=== PATIENT | male | born 1960 | race Caucasian/White ===

== ENCOUNTER 2021-01-26 12:49 | Inpatient (IN) | payer OTHER ==
[2021-01-26] MEDS ORDERED: ALBUTEROL SO4 2.5/IPRATROPIUM 0.5 INH SOL 3 ML VIAL.NEB. NEB ONE ×4 (13:18→19:01)
[2021-01-26] MEDS ORDERED: methylPREDNISolone NA SUCC 125 MG/2 ML VIAL IVPUSH ONE (13:18)
[2021-01-26] MEDS ORDERED: CEFTRIAXONE 1,000 MG in DEXTROSE 5%-WATER - 50 ML IVPB ONE (13:18)
[2021-01-26] MEDS ORDERED: CEFTRIAXONE 1 GM/50 ML BAG ONE (14:05)
[2021-01-26] MEDS ORDERED: methylPREDNISolone NA SUCC 125 MG/2 ML VIAL ONE ×2 (14:07→19:01)
[2021-01-26 14:45] LABS: VENOUS O2 SATURATION 77.4 % (70-80); VENOUS PH 7.317 (7.310-7.410)
[2021-01-26 14:46] LABS: BASO % 0.4 % (0-2.0); EOS % 0.2 % (0-4.5); HEMATOCRIT 42.3 % (35.4-49); HEMOGLOBIN 13.8 GM/dL (11.7-16.9); LYMPH % 4.5 % (8-40); MCH 30.5 pg (25.7-33.7); MCHC 32.6 g/dl (32.0-35.9); MEAN CELL VOLUME 93.7 fl (80-96); MEAN PLT VOLUME 9.8 fl (7.5-11.1); MONO % 2.1 % (3.8-10.2); NEUT % 92.8 % (42.8-82.8); PLATELET COUNT 155 10^3/uL (134-434); RBC 4.52 M/mm3 (4.00-5.60); RDW 14.4 % (11.9-15.9); WHITE BLOOD COUNT 7.8 K/mm3 (4.0-10.0)
[2021-01-26 14:48] LABS: VENOUS PCO2 74.6 mmHg (38-52)
[2021-01-26 15:01] LABS: CHLORIDE 100 mmol/L (98-107); SODIUM 142 mmol/L (136-145)
[2021-01-26 15:04] LABS: ALBUMIN 3.6 g/dl (3.4-5.0); ANION GAP 2 MMOL/L (8-16); BLOOD UREA NITROGEN 13.4 mg/dL (7-18); CO2 39 mmol/L (21-32); GLUCOSE,RANDOM 110 mg/dL (74-106)
[2021-01-26 15:07] LABS: CREATININE 0.5 mg/dL (0.55-1.3); SGOT/AST 8 U/L (15-37); SGPT/ALT 13 U/L (13-61)
[2021-01-26 15:09] LABS: BILIRUBIN,TOTAL 0.4 mg/dL (0.2-1); TOT PROT 6.4 g/dl (6.4-8.2)
[2021-01-26 15:10] LABS: ALK PHOS 61 U/L (45-117)
[2021-01-26 15:11] LABS: ANISOCYTOSIS 0; MACROCYTOSIS 0; PLATELET ESTIMATE DECREASED
[2021-01-26] MEDS ORDERED: methylPREDNISolone NA SUCC 40 MG/1 ML VIAL IVPUSH ONE (17:03)
[2021-01-26] MEDS ORDERED: AZITHROMYCIN IVPB 500 MG/250 ML BAG IVPB ONE (19:01)
[2021-01-26] MEDS: AZITHROMYCIN IVPB 500 MG/250 ML BAG IVPB SCH (19:20)
[2021-01-26] MEDS ORDERED: dilTIAZem HCL 50 MG/10 ML - 10 ML VIAL IVPUSH ONE (19:26)
[2021-01-26] MEDS ORDERED: methylPREDNISolone NA SUCC 40 MG/1 ML VIAL IVPUSH SCH (19:30)
[2021-01-26] MEDS ORDERED: dilTIAZem HCL 125 MG/25 ML - 25 ML VIAL ONE (19:37)
[2021-01-26] MEDS: IPRATROPIUM BR 0.02% 0.5 MG/2.5 ML VIAL.NEB. NEB SCH (20:05)
[2021-01-26] MEDS: LEVALBUTEROL HCL 0.63 MG/3 ML VIAL.NEB. IH SCH (20:05)
[2021-01-26] MEDS ORDERED: ALPRAZolam 1 MG TABLET PO ONE (20:35)
[2021-01-26] MEDS ORDERED: ALPRAZolam 1 MG TABLET ONE (20:38)
[2021-01-26 20:43] LABS: ARTERIAL BLD GAS O2 SATURATION 98.3 % (95-98); ARTERIAL BLOOD GAS BASE EXCESS 7.4 mmol/L (-2-2); ARTERIAL BLOOD GAS PO2 136.9 mmHg (80-100); ARTERIAL BLOOD GAS pH 7.298 (7.350-7.450)
[2021-01-26 20:45] LABS: ALLENS TEST POSITIVE
[2021-01-26 20:46] LABS: VENT RATE 14
[2021-01-26] MEDS: methylPREDNISolone NA SUCC 40 MG/1 ML VIAL IVPUSH SCH (21:11)
[2021-01-26] MEDS ORDERED: metoPROLOL SUCCINATE 25 MG TAB.SR.24H (FP) PO SCH (22:00)
[2021-01-26] MEDS ORDERED: metoPROLOL SUCCINATE 25 MG TAB.SR.24H (FP) PO ONE (22:00)
[2021-01-27] MEDS: methylPREDNISolone NA SUCC 40 MG/1 ML VIAL IVPUSH SCH ×4 (04:16→20:54)
[2021-01-27 06:32] LABS: ARTERIAL BLOOD GAS PO2 91.6 mmHg (80-100); ARTERIAL BLOOD GAS pH 7.312 (7.350-7.450)
[2021-01-27 06:35] LABS: ALLENS TEST POSITIVE; PT'S TEMP NORMAL
[2021-01-27 06:36] LABS: VENT MODE S/T; VENT RATE 14
[2021-01-27] MEDS ORDERED: DEXTROSE 5%-WATER - 50 ML IVPB ONE (09:06)
[2021-01-27] MEDS ORDERED: cefTRIAXone SODIUM 1 GM VIAL ONE (09:06)
[2021-01-27] MEDS ORDERED: ALPRAZolam 1 MG TABLET PO PRN (09:10)
[2021-01-27] MEDS: CEFTRIAXONE 1 GM in DEXTROSE 5%-WATER - 50 ML IVPB SCH (09:23)
[2021-01-27] MEDS: AZITHROMYCIN IVPB 500 MG/250 ML BAG IVPB SCH (09:23)
[2021-01-27] MEDS: LEVALBUTEROL HCL 0.63 MG/3 ML VIAL.NEB. IH SCH ×3 (09:45→20:20)
[2021-01-27] MEDS: IPRATROPIUM BR 0.02% 0.5 MG/2.5 ML VIAL.NEB. NEB SCH ×3 (09:45→20:20)
[2021-01-27] MEDS: MUPIROCIN 2% TOPICAL OINTMENT FOR DECOLONIZATION NS SCH ×2 (09:59→22:10)
[2021-01-27] MEDS: dilTIAZem HCL 50 MG/10 ML - 10 ML VIAL IVPUSH PRN ×2 (13:55→18:14)
[2021-01-27] MEDS: ALPRAZolam 1 MG TABLET PO PRN ×2 (13:58→20:54)
[2021-01-27] MEDS: RIVAROXABAN 20 MG TABLET PO SCH (17:38)
[2021-01-27] MEDS: dilTIAZem HCL 30 MG TABLET PO SCH (17:38)
[2021-01-27] MEDS: CHLORHEXIDINE GLUCONATE 4% CLEANSER FOR DECOLONIZATION TP SCH (22:10)
[2021-01-28] MEDS: dilTIAZem HCL 30 MG TABLET PO SCH ×4 (02:11→18:00)
[2021-01-28] MEDS: methylPREDNISolone NA SUCC 40 MG/1 ML VIAL IVPUSH SCH ×3 (03:04→22:38)
[2021-01-28] MEDS: LEVALBUTEROL HCL 0.63 MG/3 ML VIAL.NEB. IH SCH ×5 (07:20→20:35)
[2021-01-28] MEDS: IPRATROPIUM BR 0.02% 0.5 MG/2.5 ML VIAL.NEB. NEB SCH ×5 (07:20→20:35)
[2021-01-28] MEDS ORDERED: cefTRIAXone SODIUM 1 GM VIAL ONE (10:03)
[2021-01-28] MEDS ORDERED: DEXTROSE 5%-WATER - 50 ML IVPB ONE (10:03)
[2021-01-28] MEDS: CEFTRIAXONE 1 GM in DEXTROSE 5%-WATER - 50 ML IVPB SCH (10:06)
[2021-01-28] MEDS: AZITHROMYCIN IVPB 500 MG/250 ML BAG IVPB SCH (10:06)
[2021-01-28] MEDS: ALPRAZolam 1 MG TABLET PO PRN ×3 (10:07→22:39)
[2021-01-28] MEDS: MUPIROCIN 2% TOPICAL OINTMENT FOR DECOLONIZATION NS SCH ×2 (11:00→22:38)
[2021-01-28] MEDS ORDERED: PT OWN MED DRAWER 7, Y5N ONE (12:53)
[2021-01-28] MEDS: dilTIAZem HCL 50 MG/10 ML - 10 ML VIAL IVPUSH PRN ×2 (14:15→18:45)
[2021-01-28] MEDS ORDERED: LORazepam 2 MG/ML SDV VIAL IVPUSH ONE (14:15)
[2021-01-28] MEDS: RIVAROXABAN 20 MG TABLET PO SCH (18:00)
[2021-01-28] MEDS: CHLORHEXIDINE GLUCONATE 4% CLEANSER FOR DECOLONIZATION TP SCH (22:38)
[2021-01-29] MEDS: dilTIAZem HCL 30 MG TABLET PO SCH ×5 (00:13→23:22)
[2021-01-29 07:07] LABS: HEMATOCRIT 43.8 % (35.4-49); HEMOGLOBIN 14.2 GM/dL (11.7-16.9); MCH 31.3 pg (25.7-33.7); MCHC 32.3 g/dl (32.0-35.9); MEAN CELL VOLUME 96.9 fl (80-96); MEAN PLT VOLUME 10.9 fl (7.5-11.1); PLATELET COUNT 129 10^3/uL (134-434); RBC 4.52 M/mm3 (4.00-5.60); RDW 14.7 % (11.9-15.9); WHITE BLOOD COUNT 10.8 K/mm3 (4.0-10.0)
[2021-01-29 07:15] LABS: CALCIUM 8.7 mg/dL (8.5-10.1)
[2021-01-29 07:16] LABS: BLOOD UREA NITROGEN 25.1 mg/dL (7-18); MAGNESIUM 2.3 mg/dL (1.8-2.4)
[2021-01-29 07:19] LABS: CREATININE 0.6 mg/dL (0.55-1.3); PHOSPHOROUS 3.8 mg/dL (2.5-4.9)
[2021-01-29] MEDS: IPRATROPIUM BR 0.02% 0.5 MG/2.5 ML VIAL.NEB. NEB SCH ×4 (07:30→20:12)
[2021-01-29] MEDS: LEVALBUTEROL HCL 0.63 MG/3 ML VIAL.NEB. IH SCH ×4 (07:30→20:13)
[2021-01-29] MEDS ORDERED: DEXTROSE 5%-WATER - 50 ML IVPB ONE (09:11)
[2021-01-29] MEDS ORDERED: cefTRIAXone SODIUM 1 GM VIAL ONE (09:11)
[2021-01-29] MEDS: ALPRAZolam 1 MG TABLET PO PRN ×2 (09:13→17:03)
[2021-01-29] MEDS: dilTIAZem HCL 50 MG/10 ML - 10 ML VIAL IVPUSH PRN ×2 (09:14→12:45)
[2021-01-29] MEDS: methylPREDNISolone NA SUCC 40 MG/1 ML VIAL IVPUSH SCH ×2 (09:14→21:04)
[2021-01-29] MEDS: CEFTRIAXONE 1 GM in DEXTROSE 5%-WATER - 50 ML IVPB SCH (09:27)
[2021-01-29] MEDS: MUPIROCIN 2% TOPICAL OINTMENT FOR DECOLONIZATION NS SCH (09:32)
[2021-01-29] MEDS: RIVAROXABAN 20 MG TABLET PO SCH (17:03)
[2021-01-29] MEDS ORDERED: dilTIAZem HCL 50 MG/10 ML - 10 ML VIAL IVPUSH PRN ×2 (17:19→17:46)
[2021-01-29] MEDS ORDERED: RIVAROXABAN 20 MG TABLET PO SCH (18:00)
[2021-01-30] MEDS: ALPRAZolam 1 MG TABLET PO PRN ×2 (05:16→22:42)
[2021-01-30] MEDS: dilTIAZem HCL 30 MG TABLET PO SCH ×4 (05:16→23:29)
[2021-01-30 08:03] LABS: HEMATOCRIT 40.5 % (35.4-49); MCH 30.9 pg (25.7-33.7); MEAN CELL VOLUME 96.3 fl (80-96); MEAN PLT VOLUME 11.1 fl (7.5-11.1); PLATELET COUNT 140 10^3/uL (134-434); RBC 4.21 M/mm3 (4.00-5.60); RDW 14.6 % (11.9-15.9); WHITE BLOOD COUNT 8.7 K/mm3 (4.0-10.0)
[2021-01-30 08:23] LABS: CALCIUM 9.1 mg/dL (8.5-10.1)
[2021-01-30 08:24] LABS: BLOOD UREA NITROGEN 24.7 mg/dL (7-18); MAGNESIUM 2.4 mg/dL (1.8-2.4)
[2021-01-30] MEDS: LEVALBUTEROL HCL 0.63 MG/3 ML VIAL.NEB. IH SCH ×4 (08:25→21:05)
[2021-01-30] MEDS: IPRATROPIUM BR 0.02% 0.5 MG/2.5 ML VIAL.NEB. NEB SCH ×4 (08:25→20:55)
[2021-01-30 08:26] LABS: ALBUMIN 3.1 g/dl (3.4-5.0)
[2021-01-30 08:27] LABS: CREATININE 0.5 mg/dL (0.55-1.3); PHOSPHOROUS 3.7 mg/dL (2.5-4.9)
[2021-01-30 08:28] LABS: BILIRUBIN,TOTAL 0.2 mg/dL (0.2-1); TOT PROT 5.6 g/dl (6.4-8.2)
[2021-01-30] MEDS ORDERED: cefTRIAXone SODIUM 1 GM VIAL ONE (08:36)
[2021-01-30] MEDS ORDERED: DEXTROSE 5%-WATER - 50 ML IVPB ONE (08:36)
[2021-01-30] MEDS: CEFTRIAXONE 1 GM in DEXTROSE 5%-WATER - 50 ML IVPB SCH (09:26)
[2021-01-30] MEDS: methylPREDNISolone NA SUCC 40 MG/1 ML VIAL IVPUSH SCH ×2 (09:27→21:07)
[2021-01-30] MEDS: RIVAROXABAN 20 MG TABLET PO SCH (18:37)
[2021-01-31] MEDS: LEVALBUTEROL HCL 0.63 MG/3 ML VIAL.NEB. IH SCH ×4 (02:55→20:13)
[2021-01-31] MEDS: dilTIAZem HCL 30 MG TABLET PO SCH ×5 (05:07→23:05)
[2021-01-31] MEDS: ACETAMINOPHEN 325 MG TABLET (FP) PO PRN ×2 (06:18→11:42)
[2021-01-31] MEDS: ALPRAZolam 1 MG TABLET PO PRN ×3 (06:48→21:06)
[2021-01-31] MEDS: IPRATROPIUM BR 0.02% 0.5 MG/2.5 ML VIAL.NEB. NEB SCH ×2 (07:54→12:00)
[2021-01-31] MEDS ORDERED: cefTRIAXone SODIUM 1 GM VIAL ONE (09:40)
[2021-01-31] MEDS ORDERED: DEXTROSE 5%-WATER - 50 ML IVPB ONE (09:41)
[2021-01-31] MEDS: CEFTRIAXONE 1 GM in DEXTROSE 5%-WATER - 50 ML IVPB SCH (09:45)
[2021-01-31] MEDS: methylPREDNISolone NA SUCC 40 MG/1 ML VIAL IVPUSH SCH ×3 (09:46→21:05)
[2021-01-31] MEDS: TIOTROPIUM BROMIDE 2.5 MCG (SPIRIVA) RESPIMAT INHALER IH SCH (15:47)
[2021-01-31] MEDS: RIVAROXABAN 20 MG TABLET PO SCH (17:23)
[2021-01-31] MEDS ORDERED: ALBUTEROL SO4 2.5/IPRATROPIUM 0.5 INH SOL 3 ML VIAL.NEB. NEB PRN (19:59)
[2021-02-01] MEDS: methylPREDNISolone NA SUCC 40 MG/1 ML VIAL IVPUSH SCH ×4 (03:54→21:29)
[2021-02-01] MEDS: dilTIAZem HCL 30 MG TABLET PO SCH ×3 (06:01→17:14)
[2021-02-01] MEDS: LEVALBUTEROL HCL 0.63 MG/3 ML VIAL.NEB. IH SCH ×3 (07:40→20:38)
[2021-02-01] MEDS ORDERED: cefTRIAXone SODIUM 1 GM VIAL ONE (09:07)
[2021-02-01] MEDS ORDERED: DEXTROSE 5%-WATER - 50 ML IVPB ONE (09:07)
[2021-02-01] MEDS: CEFTRIAXONE 1 GM in DEXTROSE 5%-WATER - 50 ML IVPB SCH (09:18)
[2021-02-01] MEDS: TIOTROPIUM BROMIDE 2.5 MCG (SPIRIVA) RESPIMAT INHALER IH SCH (09:18)
[2021-02-01] MEDS: ALPRAZolam 1 MG TABLET PO PRN ×2 (09:18→17:15)
[2021-02-01] MEDS: ACETAMINOPHEN 325 MG TABLET (FP) PO PRN ×2 (09:22→16:19)
[2021-02-01] MEDS: RIVAROXABAN 20 MG TABLET PO SCH (17:14)
[2021-02-02] MEDS: dilTIAZem HCL 30 MG TABLET PO SCH ×4 (00:19→17:39)
[2021-02-02] MEDS: ALPRAZolam 1 MG TABLET PO PRN ×3 (00:46→22:38)
[2021-02-02] MEDS: methylPREDNISolone NA SUCC 40 MG/1 ML VIAL IVPUSH SCH ×4 (02:37→21:17)
[2021-02-02] MEDS: LEVALBUTEROL HCL 0.63 MG/3 ML VIAL.NEB. IH SCH ×3 (08:09→20:04)
[2021-02-02] MEDS ORDERED: cefTRIAXone SODIUM 1 GM VIAL ONE (08:37)
[2021-02-02] MEDS ORDERED: PT OWN MED DRAWER 7, Y5N ONE (08:37)
[2021-02-02] MEDS ORDERED: DEXTROSE 5%-WATER - 50 ML IVPB ONE (08:38)
[2021-02-02] MEDS: MULTIVITAMINS THER W-MINERALS COMBO TABLET (FP) PO SCH (09:45)
[2021-02-02] MEDS: CEFTRIAXONE 1 GM in DEXTROSE 5%-WATER - 50 ML IVPB SCH (09:45)
[2021-02-02] MEDS: TIOTROPIUM BROMIDE 2.5 MCG (SPIRIVA) RESPIMAT INHALER IH SCH (09:46)
[2021-02-02] MEDS ORDERED: ALBUTEROL SO4 0.083% IH SOL 2.5 MG/3 ML VIAL.NEB. NEB PRN (11:49)
[2021-02-02] MEDS: RIVAROXABAN 20 MG TABLET PO SCH (17:40)
[2021-02-03] MEDS: dilTIAZem HCL 30 MG TABLET PO SCH ×4 (00:31→16:59)
[2021-02-03] MEDS: methylPREDNISolone NA SUCC 40 MG/1 ML VIAL IVPUSH SCH ×4 (02:11→21:46)
[2021-02-03] MEDS: LEVALBUTEROL HCL 0.63 MG/3 ML VIAL.NEB. IH SCH ×4 (08:30→19:48)
[2021-02-03] MEDS ORDERED: cefTRIAXone SODIUM 1 GM VIAL ONE (09:27)
[2021-02-03] MEDS ORDERED: DEXTROSE 5%-WATER - 50 ML IVPB ONE (09:27)
[2021-02-03] MEDS: CEFTRIAXONE 1 GM in DEXTROSE 5%-WATER - 50 ML IVPB SCH (09:52)
[2021-02-03] MEDS: MULTIVITAMINS THER W-MINERALS COMBO TABLET (FP) PO SCH (09:53)
[2021-02-03] MEDS: ALPRAZolam 1 MG TABLET PO PRN ×2 (10:00→17:00)
[2021-02-03] MEDS: ACETAMINOPHEN 325 MG TABLET (FP) PO PRN (10:00)
[2021-02-03] MEDS: TIOTROPIUM BROMIDE 2.5 MCG (SPIRIVA) RESPIMAT INHALER IH SCH (10:03)
[2021-02-03] MEDS: RIVAROXABAN 20 MG TABLET PO SCH (17:00)
[2021-02-04] MEDS: dilTIAZem HCL 30 MG TABLET PO SCH ×4 (00:58→17:21)
[2021-02-04] MEDS: ALPRAZolam 1 MG TABLET PO PRN ×3 (01:02→17:56)
[2021-02-04] MEDS: methylPREDNISolone NA SUCC 40 MG/1 ML VIAL IVPUSH SCH ×3 (02:02→17:20)
[2021-02-04] MEDS: LEVALBUTEROL HCL 0.63 MG/3 ML VIAL.NEB. IH SCH ×3 (07:40→20:45)
[2021-02-04] MEDS: MULTIVITAMINS THER W-MINERALS COMBO TABLET (FP) PO SCH (09:10)
[2021-02-04] MEDS: ACETAMINOPHEN 325 MG TABLET (FP) PO PRN (09:11)
[2021-02-04] MEDS: TIOTROPIUM BROMIDE 2.5 MCG (SPIRIVA) RESPIMAT INHALER IH SCH (09:12)
[2021-02-04] MEDS ORDERED: cefTRIAXone SODIUM 1 GM VIAL ONE (09:26)
[2021-02-04] MEDS ORDERED: DEXTROSE 5%-WATER - 50 ML IVPB ONE (09:26)
[2021-02-04] MEDS: CEFTRIAXONE 1 GM in DEXTROSE 5%-WATER - 50 ML IVPB SCH (09:30)
[2021-02-04] MEDS: POLYETHYLENE GLYCOL (HEALTHYLAX) 3350 17 GM PACKET PO SCH (11:33)
[2021-02-04] MEDS: RIVAROXABAN 20 MG TABLET PO SCH (17:21)
[2021-02-05] MEDS: dilTIAZem HCL 30 MG TABLET PO SCH ×5 (00:24→23:36)
[2021-02-05] MEDS: ACETAMINOPHEN 325 MG TABLET (FP) PO PRN (00:37)
[2021-02-05] MEDS: methylPREDNISolone NA SUCC 40 MG/1 ML VIAL IVPUSH SCH ×3 (01:01→18:56)
[2021-02-05 07:12] LABS: BASO % 0.2 % (0-2.0); HEMOGLOBIN 13.6 GM/dL (11.7-16.9); MCH 31.5 pg (25.7-33.7); MCHC 33.1 g/dl (32.0-35.9); MEAN PLT VOLUME 10.7 fl (7.5-11.1); MONO % 2.3 % (3.8-10.2); NEUT % 95.5 % (42.8-82.8); PLATELET COUNT 122 10^3/uL (134-434); RBC 4.31 M/mm3 (4.00-5.60); RDW 14.5 % (11.9-15.9); WHITE BLOOD COUNT 9.1 K/mm3 (4.0-10.0)
[2021-02-05 07:34] LABS: ALBUMIN 2.6 g/dl (3.4-5.0); BLOOD UREA NITROGEN 27.5 mg/dL (7-18); CALCIUM 7.9 mg/dL (8.5-10.1); MAGNESIUM 2.3 mg/dL (1.8-2.4)
[2021-02-05 07:37] LABS: CREATININE 0.6 mg/dL (0.55-1.3)
[2021-02-05 07:38] LABS: BILIRUBIN,TOTAL 0.3 mg/dL (0.2-1); PHOSPHOROUS 3.1 mg/dL (2.5-4.9)
[2021-02-05 07:39] LABS: TOT PROT 4.9 g/dl (6.4-8.2)
[2021-02-05] MEDS: LEVALBUTEROL HCL 0.63 MG/3 ML VIAL.NEB. IH SCH ×4 (08:35→20:38)
[2021-02-05] MEDS ORDERED: cefTRIAXone SODIUM 1 GM VIAL ONE (09:00)
[2021-02-05] MEDS ORDERED: DEXTROSE 5%-WATER - 50 ML IVPB ONE (09:00)
[2021-02-05] MEDS: POLYETHYLENE GLYCOL (HEALTHYLAX) 3350 17 GM PACKET PO SCH (09:27)
[2021-02-05] MEDS: CEFTRIAXONE 1 GM in DEXTROSE 5%-WATER - 50 ML IVPB SCH (09:31)
[2021-02-05] MEDS: MULTIVITAMINS THER W-MINERALS COMBO TABLET (FP) PO SCH (09:31)
[2021-02-05] MEDS: TIOTROPIUM BROMIDE 2.5 MCG (SPIRIVA) RESPIMAT INHALER IH SCH (09:42)
[2021-02-05 09:43] LABS: ANISOCYTOSIS 0; MACROCYTOSIS 0; PLATELET ESTIMATE DECREASED
[2021-02-05] MEDS: ALPRAZolam 1 MG TABLET PO PRN ×2 (11:00→21:32)
[2021-02-05] MEDS: RIVAROXABAN 20 MG TABLET PO SCH (18:56)
[2021-02-06] MEDS: methylPREDNISolone NA SUCC 40 MG/1 ML VIAL IVPUSH SCH ×3 (01:28→21:20)
[2021-02-06] MEDS: dilTIAZem HCL 30 MG TABLET PO SCH ×3 (06:10→17:09)
[2021-02-06 08:13] LABS: ALBUMIN 2.6 g/dl (3.4-5.0)
[2021-02-06 08:14] LABS: BLOOD UREA NITROGEN 24.6 mg/dL (7-18)
[2021-02-06 08:15] LABS: MAGNESIUM 2.2 mg/dL (1.8-2.4)
[2021-02-06 08:16] LABS: CREATININE 0.4 mg/dL (0.55-1.3)
[2021-02-06 08:17] LABS: PHOSPHOROUS 3.4 mg/dL (2.5-4.9)
[2021-02-06 08:18] LABS: BILIRUBIN,TOTAL 0.5 mg/dL (0.2-1)
[2021-02-06 08:20] LABS: BASO % 0.2 % (0-2.0); HEMATOCRIT 41.6 % (35.4-49); HEMOGLOBIN 13.6 GM/dL (11.7-16.9); LYMPH % 2.1 % (8-40); MCH 31.2 pg (25.7-33.7); MCHC 32.6 g/dl (32.0-35.9); MEAN CELL VOLUME 95.7 fl (80-96); MEAN PLT VOLUME 11.5 fl (7.5-11.1); MONO % 2.1 % (3.8-10.2); NEUT % 95.6 % (42.8-82.8); PLATELET COUNT 136 10^3/uL (134-434); RBC 4.35 M/mm3 (4.00-5.60); RDW 14.7 % (11.9-15.9); WHITE BLOOD COUNT 11.7 K/mm3 (4.0-10.0)
[2021-02-06] MEDS: LEVALBUTEROL HCL 0.63 MG/3 ML VIAL.NEB. IH SCH ×4 (09:26→19:55)
[2021-02-06] MEDS ORDERED: cefTRIAXone SODIUM 1 GM VIAL ONE (09:26)
[2021-02-06] MEDS ORDERED: DEXTROSE 5%-WATER - 50 ML IVPB ONE (09:27)
[2021-02-06] MEDS: MULTIVITAMINS THER W-MINERALS COMBO TABLET (FP) PO SCH (09:44)
[2021-02-06] MEDS: POLYETHYLENE GLYCOL (HEALTHYLAX) 3350 17 GM PACKET PO SCH (09:44)
[2021-02-06] MEDS: TIOTROPIUM BROMIDE 2.5 MCG (SPIRIVA) RESPIMAT INHALER IH SCH (09:44)
[2021-02-06] MEDS: ALPRAZolam 1 MG TABLET PO PRN ×2 (09:58→20:19)
[2021-02-06] MEDS ORDERED: methylPREDNISolone NA SUCC 40 MG/1 ML VIAL IVPUSH SCH (12:30)
[2021-02-06 13:30] LABS: ANISOCYTOSIS 1+; MACROCYTOSIS 0; PLATELET ESTIMATE DECREASED
[2021-02-06 14:21] LABS: POTASSIUM PLASMA 4.5 mmol/L (3.5-5.1)
[2021-02-06 14:22] LABS: CALCIUM 8.2 mg/dL (8.5-10.1)
[2021-02-06 14:23] LABS: BLOOD UREA NITROGEN 27.6 mg/dL (7-18)
[2021-02-06 14:26] LABS: CREATININE 0.7 mg/dL (0.55-1.3)
[2021-02-06] MEDS: RIVAROXABAN 20 MG TABLET PO SCH (17:09)
[2021-02-07] MEDS: dilTIAZem HCL 30 MG TABLET PO SCH ×3 (00:15→11:59)
[2021-02-07] MEDS: LEVALBUTEROL HCL 0.63 MG/3 ML VIAL.NEB. IH SCH ×4 (07:55→20:30)
[2021-02-07 08:25] LABS: BASO % 0.3 % (0-2.0); HEMATOCRIT 42.5 % (35.4-49); LYMPH % 2.3 % (8-40); MCH 31.3 pg (25.7-33.7); MEAN PLT VOLUME 11.1 fl (7.5-11.1); MONO % 2.1 % (3.8-10.2); NEUT % 95.3 % (42.8-82.8); PLATELET COUNT 120 10^3/uL (134-434); RBC 4.47 M/mm3 (4.00-5.60); RDW 14.3 % (11.9-15.9)
[2021-02-07 08:57] LABS: ALBUMIN 2.5 g/dl (3.4-5.0); BLOOD UREA NITROGEN 24.9 mg/dL (7-18); CALCIUM 8.1 mg/dL (8.5-10.1)
[2021-02-07 08:58] LABS: MAGNESIUM 2.3 mg/dL (1.8-2.4)
[2021-02-07 09:00] LABS: CREATININE 0.4 mg/dL (0.55-1.3); PHOSPHOROUS 3.3 mg/dL (2.5-4.9)
[2021-02-07 09:02] LABS: BILIRUBIN,TOTAL 0.7 mg/dL (0.2-1); TOT PROT 4.7 g/dl (6.4-8.2)
[2021-02-07] MEDS: methylPREDNISolone NA SUCC 40 MG/1 ML VIAL IVPUSH SCH ×2 (10:10→22:25)
[2021-02-07] MEDS: POLYETHYLENE GLYCOL (HEALTHYLAX) 3350 17 GM PACKET PO SCH ×2 (10:10→20:30)
[2021-02-07] MEDS: MULTIVITAMINS THER W-MINERALS COMBO TABLET (FP) PO SCH (10:10)
[2021-02-07] MEDS: TIOTROPIUM BROMIDE 2.5 MCG (SPIRIVA) RESPIMAT INHALER IH SCH (10:11)
[2021-02-07] MEDS: ALPRAZolam 1 MG TABLET PO PRN ×2 (10:21→18:16)
[2021-02-07 11:40] LABS: ANISOCYTOSIS 1+; MACROCYTOSIS 1+; PLATELET ESTIMATE DECREASED
[2021-02-07] MEDS: RIVAROXABAN 20 MG TABLET PO SCH (18:16)
[2021-02-07] MEDS: dilTIAZem HCL 60 MG TABLET PO SCH (18:16)
[2021-02-07] MEDS ORDERED: PT OWN MED DRAWER 7, Y5N ONE (20:32)
[2021-02-08] MEDS: dilTIAZem HCL 60 MG TABLET PO SCH ×5 (00:44→18:11)
[2021-02-08] MEDS: ALPRAZolam 1 MG TABLET PO PRN ×3 (02:28→18:11)
[2021-02-08] MEDS: POLYETHYLENE GLYCOL (HEALTHYLAX) 3350 17 GM PACKET PO SCH ×3 (06:57→22:05)
[2021-02-08 07:55] LABS: BASO % 0.1 % (0-2.0); HEMATOCRIT 41.9 % (35.4-49); HEMOGLOBIN 13.7 GM/dL (11.7-16.9); LYMPH % 1.5 % (8-40); MCH 30.5 pg (25.7-33.7); MCHC 32.6 g/dl (32.0-35.9); MEAN CELL VOLUME 93.5 fl (80-96); MEAN PLT VOLUME 10.4 fl (7.5-11.1); MONO % 1.7 % (3.8-10.2); NEUT % 96.7 % (42.8-82.8); PLATELET COUNT 124 10^3/uL (134-434); RBC 4.48 M/mm3 (4.00-5.60); RDW 14.3 % (11.9-15.9); WHITE BLOOD COUNT 14.7 K/mm3 (4.0-10.0)
[2021-02-08] MEDS: LEVALBUTEROL HCL 0.63 MG/3 ML VIAL.NEB. IH SCH ×2 (08:00→11:30)
[2021-02-08 08:16] LABS: CALCIUM 8.1 mg/dL (8.5-10.1)
[2021-02-08 08:17] LABS: ALBUMIN 2.5 g/dl (3.4-5.0); BLOOD UREA NITROGEN 22.2 mg/dL (7-18); MAGNESIUM 2.2 mg/dL (1.8-2.4)
[2021-02-08 08:20] LABS: CREATININE 0.5 mg/dL (0.55-1.3); PHOSPHOROUS 3.1 mg/dL (2.5-4.9)
[2021-02-08 08:21] LABS: BILIRUBIN,TOTAL 0.5 mg/dL (0.2-1); TOT PROT 4.9 g/dl (6.4-8.2)
[2021-02-08 09:46] LABS: ANISOCYTOSIS 0; MACROCYTOSIS 0; PLATELET ESTIMATE NORMAL
[2021-02-08] MEDS: MULTIVITAMINS THER W-MINERALS COMBO TABLET (FP) PO SCH (10:27)
[2021-02-08] MEDS: methylPREDNISolone NA SUCC 40 MG/1 ML VIAL IVPUSH SCH ×2 (10:27→22:13)
[2021-02-08] MEDS: TIOTROPIUM BROMIDE 2.5 MCG (SPIRIVA) RESPIMAT INHALER IH SCH (10:28)
[2021-02-08] MEDS: DOCUSATE SODIUM 100 MG CAPSULE (FP) PO SCH (12:30)
[2021-02-08] MEDS: ALBUTEROL SO4 2.5/IPRATROPIUM 0.5 INH SOL 3 ML VIAL.NEB. NEB PRN ×2 (15:08→20:51)
[2021-02-08] MEDS: RIVAROXABAN 20 MG TABLET PO SCH (18:11)
[2021-02-08] MEDS: SENNOSIDES 8.6MG TABLET (FP) PO SCH (22:05)
[2021-02-09] MEDS: dilTIAZem HCL 60 MG TABLET PO SCH ×4 (05:46→22:00)
[2021-02-09] MEDS: POLYETHYLENE GLYCOL (HEALTHYLAX) 3350 17 GM PACKET PO SCH ×2 (07:00→13:23)
[2021-02-09] MEDS: ALBUTEROL SO4 2.5/IPRATROPIUM 0.5 INH SOL 3 ML VIAL.NEB. NEB PRN ×3 (07:45→20:10)
[2021-02-09 08:13] LABS: BASO % 0.2 % (0-2.0); HEMOGLOBIN 13.5 GM/dL (11.7-16.9); LYMPH % 1.8 % (8-40); MCH 31.1 pg (25.7-33.7); MCHC 32.9 g/dl (32.0-35.9); MEAN CELL VOLUME 94.6 fl (80-96); MONO % 2.7 % (3.8-10.2); NEUT % 95.3 % (42.8-82.8); PLATELET COUNT 134 10^3/uL (134-434); RBC 4.34 M/mm3 (4.00-5.60); RDW 14.4 % (11.9-15.9); WHITE BLOOD COUNT 15.1 K/mm3 (4.0-10.0)
[2021-02-09 08:20] LABS: ALBUMIN 2.5 g/dl (3.4-5.0); BLOOD UREA NITROGEN 25.4 mg/dL (7-18); CALCIUM 7.8 mg/dL (8.5-10.1)
[2021-02-09 08:23] LABS: CREATININE 0.6 mg/dL (0.55-1.3); MAGNESIUM 2.1 mg/dL (1.8-2.4); PHOSPHOROUS 4.3 mg/dL (2.5-4.9)
[2021-02-09 08:24] LABS: BILIRUBIN,TOTAL 0.5 mg/dL (0.2-1); TOT PROT 4.8 g/dl (6.4-8.2)
[2021-02-09] MEDS: methylPREDNISolone NA SUCC 40 MG/1 ML VIAL IVPUSH SCH ×2 (09:54→22:07)
[2021-02-09] MEDS: MULTIVITAMINS THER W-MINERALS COMBO TABLET (FP) PO SCH (09:54)
[2021-02-09] MEDS: DOCUSATE SODIUM 100 MG CAPSULE (FP) PO SCH (09:54)
[2021-02-09] MEDS ORDERED: PT OWN MED DRAWER 7, Y5N ONE (10:30)
[2021-02-09 10:49] LABS: ANISOCYTOSIS 1+; MACROCYTOSIS 0; OVALOCYTE 1+; PLATELET ESTIMATE DECREASED; TEAR DROP CELLS 1+
[2021-02-09] MEDS: ALPRAZolam 1 MG TABLET PO PRN (10:52)
[2021-02-09] MEDS: TIOTROPIUM BROMIDE 2.5 MCG (SPIRIVA) RESPIMAT INHALER IH SCH (11:53)
[2021-02-09] MEDS: RIVAROXABAN 20 MG TABLET PO SCH (17:31)
[2021-02-09] MEDS: SENNOSIDES 8.6MG TABLET (FP) PO SCH (22:13)
[2021-02-10] MEDS: dilTIAZem HCL 60 MG TABLET PO SCH (05:58)
[2021-02-10 07:46] LABS: BASO % 0.1 % (0-2.0); HEMOGLOBIN 13.5 GM/dL (11.7-16.9); LYMPH % 1.6 % (8-40); MCH 30.9 pg (25.7-33.7); MCHC 32.8 g/dl (32.0-35.9); MEAN PLT VOLUME 10.6 fl (7.5-11.1); MONO % 1.6 % (3.8-10.2); NEUT % 96.7 % (42.8-82.8); PLATELET COUNT 118 10^3/uL (134-434); RBC 4.36 M/mm3 (4.00-5.60); RDW 14.4 % (11.9-15.9); WHITE BLOOD COUNT 12.1 K/mm3 (4.0-10.0)
[2021-02-10] MEDS: ALBUTEROL SO4 2.5/IPRATROPIUM 0.5 INH SOL 3 ML VIAL.NEB. NEB PRN ×4 (07:46→20:18)
[2021-02-10 08:13] LABS: ALBUMIN 2.5 g/dl (3.4-5.0)
[2021-02-10 08:14] LABS: BLOOD UREA NITROGEN 20.4 mg/dL (7-18)
[2021-02-10 08:17] LABS: CREATININE 0.4 mg/dL (0.55-1.3); MAGNESIUM 2.2 mg/dL (1.8-2.4); PHOSPHOROUS 3.8 mg/dL (2.5-4.9)
[2021-02-10 08:24] LABS: BILIRUBIN,TOTAL 0.9 mg/dL (0.2-1)
[2021-02-10] MEDS: methylPREDNISolone NA SUCC 40 MG/1 ML VIAL IVPUSH SCH ×2 (09:13→22:09)
[2021-02-10] MEDS: MULTIVITAMINS THER W-MINERALS COMBO TABLET (FP) PO SCH (09:13)
[2021-02-10] MEDS: DOCUSATE SODIUM 100 MG CAPSULE (FP) PO SCH (09:13)
[2021-02-10] MEDS: ALPRAZolam 1 MG TABLET PO PRN ×2 (09:13→19:46)
[2021-02-10] MEDS: TIOTROPIUM BROMIDE 2.5 MCG (SPIRIVA) RESPIMAT INHALER IH SCH (09:14)
[2021-02-10 10:19] LABS: ANISOCYTOSIS 0; MACROCYTOSIS 1+; PLATELET ESTIMATE DECREASED
[2021-02-10 13:15] VITALS: BMI 21.6
[2021-02-10] MEDS: RIVAROXABAN 20 MG TABLET PO SCH (17:29)
[2021-02-10] MEDS: SENNOSIDES 8.6MG TABLET (FP) PO SCH (22:06)
[2021-02-11 07:24] LABS: BASO % 0.2 % (0-2.0); HEMATOCRIT 39.7 % (35.4-49); HEMOGLOBIN 13.1 GM/dL (11.7-16.9); LYMPH % 1.7 % (8-40); MEAN CELL VOLUME 94.1 fl (80-96); MEAN PLT VOLUME 10.7 fl (7.5-11.1); MONO % 2.5 % (3.8-10.2); NEUT % 95.6 % (42.8-82.8); PLATELET COUNT 117 10^3/uL (134-434); RBC 4.22 M/mm3 (4.00-5.60); RDW 14.5 % (11.9-15.9); WHITE BLOOD COUNT 13.6 K/mm3 (4.0-10.0)
[2021-02-11 07:44] LABS: ALBUMIN 2.5 g/dl (3.4-5.0); CALCIUM 7.9 mg/dL (8.5-10.1); MAGNESIUM 2.1 mg/dL (1.8-2.4)
[2021-02-11 07:46] LABS: BLOOD UREA NITROGEN 22.3 mg/dL (7-18)
[2021-02-11 07:48] LABS: BILIRUBIN,TOTAL 0.5 mg/dL (0.2-1); CREATININE 0.5 mg/dL (0.55-1.3); PHOSPHOROUS 3.2 mg/dL (2.5-4.9); TOT PROT 4.9 g/dl (6.4-8.2)
[2021-02-11] MEDS: ALBUTEROL SO4 2.5/IPRATROPIUM 0.5 INH SOL 3 ML VIAL.NEB. NEB PRN ×4 (07:59→20:09)
[2021-02-11] MEDS: MULTIVITAMINS THER W-MINERALS COMBO TABLET (FP) PO SCH (09:19)
[2021-02-11] MEDS: TIOTROPIUM BROMIDE 2.5 MCG (SPIRIVA) RESPIMAT INHALER IH SCH (09:19)
[2021-02-11] MEDS: DOCUSATE SODIUM 100 MG CAPSULE (FP) PO SCH (09:19)
[2021-02-11] MEDS: ALPRAZolam 1 MG TABLET PO PRN ×2 (09:23→20:26)
[2021-02-11 09:42] LABS: ANISOCYTOSIS 0; HELMET CELLS 0; HOWELL-JOLLY BODIES 0; MACROCYTOSIS 0; OVALOCYTE 0; PLATELET ESTIMATE DECREASED; ROULEAU 0; SICKELED CELLS 0; TARGET CELLS 0; TEAR DROP CELLS 0; TOXIC GRANULATION 0
[2021-02-11] MEDS: methylPREDNISolone NA SUCC 40 MG/1 ML VIAL IVPUSH SCH ×2 (09:52→21:19)
[2021-02-11] MEDS: RIVAROXABAN 20 MG TABLET PO SCH (17:08)
[2021-02-11] MEDS: SENNOSIDES 8.6MG TABLET (FP) PO SCH ×2 (20:27→21:20)
[2021-02-12] MEDS: ALBUTEROL SO4 2.5/IPRATROPIUM 0.5 INH SOL 3 ML VIAL.NEB. NEB PRN ×5 (01:02→20:14)
[2021-02-12] MEDS: MULTIVITAMINS THER W-MINERALS COMBO TABLET (FP) PO SCH (09:33)
[2021-02-12] MEDS: DOCUSATE SODIUM 100 MG CAPSULE (FP) PO SCH (09:33)
[2021-02-12] MEDS: ALPRAZolam 1 MG TABLET PO PRN ×2 (09:34→18:05)
[2021-02-12] MEDS: predniSONE 20 MG TABLET (UD) PO SCH (09:34)
[2021-02-12] MEDS: TIOTROPIUM BROMIDE 2.5 MCG (SPIRIVA) RESPIMAT INHALER IH SCH (09:37)
[2021-02-12 11:09] LABS: BASO % 0.1 % (0-2.0); EOS % 0.1 % (0-4.5); HEMATOCRIT 41.3 % (35.4-49); HEMOGLOBIN 13.5 GM/dL (11.7-16.9); LYMPH % 2.8 % (8-40); MCH 31.2 pg (25.7-33.7); MCHC 32.8 g/dl (32.0-35.9); MEAN CELL VOLUME 95.2 fl (80-96); MEAN PLT VOLUME 10.7 fl (7.5-11.1); MONO % 5.3 % (3.8-10.2); NEUT % 91.7 % (42.8-82.8); PLATELET COUNT 146 10^3/uL (134-434); RBC 4.34 M/mm3 (4.00-5.60); RDW 14.6 % (11.9-15.9); WHITE BLOOD COUNT 15.2 K/mm3 (4.0-10.0)
[2021-02-12 11:35] LABS: BLOOD UREA NITROGEN 22.7 mg/dL (7-18); CALCIUM 8.2 mg/dL (8.5-10.1); MAGNESIUM 2.1 mg/dL (1.8-2.4)
[2021-02-12 11:39] LABS: CREATININE 0.5 mg/dL (0.55-1.3); PHOSPHOROUS 3.4 mg/dL (2.5-4.9)
[2021-02-12 12:06] LABS: ANISOCYTOSIS 0; MACROCYTOSIS 0; PLATELET ESTIMATE DECREASED
[2021-02-12] MEDS: RIVAROXABAN 20 MG TABLET PO SCH (17:10)
[2021-02-12] MEDS: ACETAMINOPHEN 325 MG TABLET (FP) PO PRN (17:10)
[2021-02-12] MEDS: SENNOSIDES 8.6MG TABLET (FP) PO SCH (21:14)
[2021-02-12] MEDS: POLYETHYLENE GLYCOL (HEALTHYLAX) 3350 17 GM PACKET PO SCH (21:15)
[2021-02-13] MEDS: ALPRAZolam 1 MG TABLET PO PRN ×3 (01:26→18:40)
[2021-02-13 07:44] LABS: BASO % 0.2 % (0-2.0); EOS % 0.5 % (0-4.5); HEMATOCRIT 39.3 % (35.4-49); LYMPH % 8.8 % (8-40); MCH 31.3 pg (25.7-33.7); MEAN CELL VOLUME 94.9 fl (80-96); MEAN PLT VOLUME 10.8 fl (7.5-11.1); MONO % 6.1 % (3.8-10.2); NEUT % 84.4 % (42.8-82.8); PLATELET COUNT 121 10^3/uL (134-434); RBC 4.14 M/mm3 (4.00-5.60); WHITE BLOOD COUNT 9.2 K/mm3 (4.0-10.0)
[2021-02-13 08:04] LABS: CALCIUM 8.1 mg/dL (8.5-10.1)
[2021-02-13 08:05] LABS: ALBUMIN 2.4 g/dl (3.4-5.0); BLOOD UREA NITROGEN 24.4 mg/dL (7-18)
[2021-02-13 08:08] LABS: CREATININE 0.4 mg/dL (0.55-1.3); PHOSPHOROUS 3.4 mg/dL (2.5-4.9)
[2021-02-13 08:09] LABS: BILIRUBIN,TOTAL 0.5 mg/dL (0.2-1)
[2021-02-13 08:10] LABS: TOT PROT 4.7 g/dl (6.4-8.2)
[2021-02-13] MEDS: TIOTROPIUM BROMIDE 2.5 MCG (SPIRIVA) RESPIMAT INHALER IH SCH (09:14)
[2021-02-13] MEDS: POLYETHYLENE GLYCOL (HEALTHYLAX) 3350 17 GM PACKET PO SCH ×3 (09:14→22:17)
[2021-02-13] MEDS: predniSONE 20 MG TABLET (UD) PO SCH (09:14)
[2021-02-13] MEDS: DOCUSATE SODIUM 100 MG CAPSULE (FP) PO SCH ×3 (09:14→22:15)
[2021-02-13] MEDS: MULTIVITAMINS THER W-MINERALS COMBO TABLET (FP) PO SCH (09:14)
[2021-02-13] MEDS: ALBUTEROL SO4 2.5/IPRATROPIUM 0.5 INH SOL 3 ML VIAL.NEB. NEB PRN ×2 (15:10→20:14)
[2021-02-13] MEDS: RIVAROXABAN 20 MG TABLET PO SCH (17:10)
[2021-02-13] MEDS: SENNOSIDES 8.6MG TABLET (FP) PO SCH (22:15)
[2021-02-14] MEDS: POLYETHYLENE GLYCOL (HEALTHYLAX) 3350 17 GM PACKET PO SCH ×3 (05:55→21:09)
[2021-02-14] MEDS: ALBUTEROL SO4 2.5/IPRATROPIUM 0.5 INH SOL 3 ML VIAL.NEB. NEB PRN ×3 (07:40→14:50)
[2021-02-14 07:59] LABS: BASO % 0.3 % (0-2.0); EOS % 0.7 % (0-4.5); HEMATOCRIT 38.7 % (35.4-49); HEMOGLOBIN 12.9 GM/dL (11.7-16.9); LYMPH % 11.9 % (8-40); MCH 31.5 pg (25.7-33.7); MCHC 33.3 g/dl (32.0-35.9); MEAN CELL VOLUME 94.5 fl (80-96); MEAN PLT VOLUME 9.8 fl (7.5-11.1); MONO % 6.1 % (3.8-10.2); PLATELET COUNT 112 10^3/uL (134-434); RBC 4.09 M/mm3 (4.00-5.60); RDW 14.9 % (11.9-15.9); WHITE BLOOD COUNT 8.7 K/mm3 (4.0-10.0)
[2021-02-14 08:23] LABS: CALCIUM 8.1 mg/dL (8.5-10.1)
[2021-02-14 08:24] LABS: ALBUMIN 2.3 g/dl (3.4-5.0)
[2021-02-14 08:26] LABS: BLOOD UREA NITROGEN 21.4 mg/dL (7-18)
[2021-02-14 08:27] LABS: CREATININE 0.3 mg/dL (0.55-1.3); MAGNESIUM 2.1 mg/dL (1.8-2.4)
[2021-02-14 08:29] LABS: BILIRUBIN,TOTAL 0.6 mg/dL (0.2-1); PHOSPHOROUS 2.8 mg/dL (2.5-4.9); TOT PROT 4.5 g/dl (6.4-8.2)
[2021-02-14] MEDS: TIOTROPIUM BROMIDE 2.5 MCG (SPIRIVA) RESPIMAT INHALER IH SCH (09:29)
[2021-02-14] MEDS: MULTIVITAMINS THER W-MINERALS COMBO TABLET (FP) PO SCH (09:29)
[2021-02-14] MEDS: predniSONE 20 MG TABLET (UD) PO SCH (09:29)
[2021-02-14] MEDS: ALPRAZolam 1 MG TABLET PO PRN ×2 (09:30→18:47)
[2021-02-14] MEDS: RIVAROXABAN 20 MG TABLET PO SCH (17:25)
[2021-02-14] MEDS: SENNOSIDES 8.6MG TABLET (FP) PO SCH (21:09)
[2021-02-14] MEDS: DOCUSATE SODIUM 100 MG CAPSULE (FP) PO SCH (21:09)
[2021-02-14] MEDS: ACETAMINOPHEN 325 MG TABLET (FP) PO PRN (22:14)
[2021-02-15] MEDS: POLYETHYLENE GLYCOL (HEALTHYLAX) 3350 17 GM PACKET PO SCH ×3 (06:09→21:50)
[2021-02-15] MEDS: ALPRAZolam 1 MG TABLET PO PRN ×3 (06:34→20:32)
[2021-02-15] MEDS: ALBUTEROL SO4 2.5/IPRATROPIUM 0.5 INH SOL 3 ML VIAL.NEB. NEB PRN ×3 (07:35→15:53)
[2021-02-15 07:43] LABS: BASO % 0.2 % (0-2.0); EOS % 0.8 % (0-4.5); HEMATOCRIT 37.1 % (35.4-49); HEMOGLOBIN 12.1 GM/dL (11.7-16.9); LYMPH % 11.7 % (8-40); MCH 31.1 pg (25.7-33.7); MCHC 32.6 g/dl (32.0-35.9); MEAN CELL VOLUME 95.3 fl (80-96); MEAN PLT VOLUME 10.3 fl (7.5-11.1); MONO % 5.2 % (3.8-10.2); NEUT % 82.1 % (42.8-82.8); PLATELET COUNT 117 10^3/uL (134-434); WHITE BLOOD COUNT 8.3 K/mm3 (4.0-10.0)
[2021-02-15 07:50] LABS: CALCIUM 7.9 mg/dL (8.5-10.1)
[2021-02-15 07:51] LABS: ALBUMIN 2.2 g/dl (3.4-5.0); MAGNESIUM 2.1 mg/dL (1.8-2.4)
[2021-02-15 07:54] LABS: CREATININE 0.3 mg/dL (0.55-1.3); PHOSPHOROUS 3.4 mg/dL (2.5-4.9)
[2021-02-15 07:56] LABS: BILIRUBIN,TOTAL 0.5 mg/dL (0.2-1); TOT PROT 4.4 g/dl (6.4-8.2)
[2021-02-15] MEDS: predniSONE 20 MG TABLET (UD) PO SCH (10:23)
[2021-02-15] MEDS: MULTIVITAMINS THER W-MINERALS COMBO TABLET (FP) PO SCH (10:23)
[2021-02-15] MEDS: TIOTROPIUM BROMIDE 2.5 MCG (SPIRIVA) RESPIMAT INHALER IH SCH (10:24)
[2021-02-15] MEDS: RIVAROXABAN 20 MG TABLET PO SCH (17:33)
[2021-02-15] MEDS: SENNOSIDES 8.6MG TABLET (FP) PO SCH (21:50)
[2021-02-15] MEDS: DOCUSATE SODIUM 100 MG CAPSULE (FP) PO SCH (21:50)
[2021-02-16] MEDS: POLYETHYLENE GLYCOL (HEALTHYLAX) 3350 17 GM PACKET PO SCH ×2 (05:57→13:09)
[2021-02-16] MEDS: ALPRAZolam 1 MG TABLET PO PRN (08:05)
[2021-02-16] MEDS: MULTIVITAMINS THER W-MINERALS COMBO TABLET (FP) PO SCH (09:35)
[2021-02-16] MEDS: TIOTROPIUM BROMIDE 2.5 MCG (SPIRIVA) RESPIMAT INHALER IH SCH (09:35)
[2021-02-16] MEDS: predniSONE 20 MG TABLET (UD) PO SCH (09:35)
[2021-02-16] MEDS: ALBUTEROL SO4 2.5/IPRATROPIUM 0.5 INH SOL 3 ML VIAL.NEB. NEB PRN (09:37)
[2021-02-16] MEDS ORDERED: ALPRAZolam 1 MG TABLET PO ONE (15:34)
[2021-02-16] MEDS: RIVAROXABAN 20 MG TABLET PO SCH (17:24)
[2021-02-16 18:10] VITALS: BP 115/67; PULSE 106; TEMP 97.6
== END 2021-02-16 20:00 | DRG 133 ==
LOC: JER 12:49 → JERBED 16:01 → J4W 22:03 → JICU 22:26 → J4W 01-29 18:45
PROVIDERS: ADMIT Internal Medicine Pulmonary Disease; ATTEND Internal Medicine
DX: J96.21 Acute and chronic respiratory failure with hypoxia (principal); I48.91 Unspecified atrial fibrillation; J96.22 Acute and chronic respiratory failure with hypercapnia; E78.5 Hyperlipidemia, unspecified; F41.9 Anxiety disorder, unspecified; J18.9 Pneumonia, unspecified organism; I10 Essential (primary) hypertension; J44.1 Chronic obstructive pulmonary disease with (acute) exacerbation; D72.829 Elevated white blood cell count, unspecified; K59.00 Constipation, unspecified; J06.9 Acute upper respiratory infection, unspecified; E87.5 Hyperkalemia
CPT/HCPCS: 36415; 36600; 71045-TC-FY; 74018-TC-FY; 80048; 80053; 82550; 82803; 82962; 83735; 84100; 84132; 84484; 85025; 85027; 87070; 87186; 87205; 93005; 93010; 94640; 94660; 97116-GP; 99285-25; C9803; U0003; U0005

== ENCOUNTER 2023-07-12 13:09 | Inpatient (IN) | payer OTHER ==
[2023-07-12] MEDS ORDERED: FAMOTIDINE 20 MG/50 ML IVPB 20 MG/50 ML MG IVPB ONE ×2 (14:08→14:20)
[2023-07-12] MEDS ORDERED: ACETAMINOPHEN 1000 MG/100 ML BAG IVPB ONE (14:08)
[2023-07-12] MEDS ORDERED: methylPREDNISolone NA SUCC 125 MG/2 ML VIAL IVPB ONE (14:09)
[2023-07-12] MEDS ORDERED: ACETAMINOPHEN INJECTION 100 ML IVPB ONE (14:19)
[2023-07-12] MEDS ORDERED: ALBUTEROL SO4 2.5/IPRATROPIUM 0.5 INH SOL 3 ML VIAL.NEB. NEB ONE ×4 (14:19→18:43)
[2023-07-12] MEDS ORDERED: methylPREDNISolone NA SUCC 125 MG/2 ML VIAL ONE (14:20)
[2023-07-12] MEDS: ALBUTEROL SO4 2.5/IPRATROPIUM 0.5 INH SOL 3 ML VIAL.NEB. NEB SCH ×5 (14:54→17:49)
[2023-07-12 15:02] LABS: PH,URINE 7.5 (5.0-8.0); URINE APPEARANCE CLEAR; URINE BILIRUBIN NEGATIVE (NEGATIVE); URINE COLOR YELLOW; URINE GLUCOSE (UA) NEGATIVE (NEGATIVE); URINE KETONE NEGATIVE (NEGATIVE); URINE LEUK ESTERASE NEGATIVE (NEGATIVE); URINE NITRITE NEGATIVE (NEGATIVE); URINE PROTEIN NEGATIVE (NEGATIVE); URINE UROBILINOGEN 0.2 mg/dL (0.2-1.0)
[2023-07-12 15:04] LABS: HEMATOCRIT 27.3 % (35.4-49); HEMOGLOBIN 7.3 GM/dL (11.7-16.9); MCHC 26.9 g/dl (32.0-35.9); MEAN CELL VOLUME 70.2 fl (80-96); MEAN PLT VOLUME 8.9 fl (7.5-11.1); PLATELET COUNT 449 10^3/uL (134-434); RBC 3.89 M/mm3 (4.00-5.60); WHITE BLOOD COUNT 9.7 K/mm3 (4.0-10.0)
[2023-07-12 15:06] LABS: MCH 18.9 pg (25.7-33.7)
[2023-07-12 15:10] LABS: VENOUS BASE EXCESS 17.5 mmol/L (-2-2); VENOUS O2 SATURATION 49.3 % (70-80); VENOUS PH 7.383 (7.310-7.410)
[2023-07-12 15:12] LABS: INR 1.44 (0.83-1.09); PROTHROMBIN TIME (PATIENT) 16.6 SEC (9.7-13.0); VENOUS PCO2 77.3 mmHg (38-52)
[2023-07-12 15:15] LABS: ACTIVATED PTT 36.7 SECONDS (25.2-36.5)
[2023-07-12 15:24] LABS: POTASSIUM 4.4 mmol/L (3.5-5.1)
[2023-07-12 15:28] LABS: ALBUMIN 3.2 g/dl (3.4-5.0); BLOOD UREA NITROGEN 14.3 mg/dL (7-18); MAGNESIUM 2.4 mg/dL (1.8-2.4)
[2023-07-12 15:31] LABS: BILIRUBIN,TOTAL 0.4 mg/dL (0.2-1); CREATININE 0.8 mg/dL (0.55-1.3); TOT PROT 6.5 g/dl (6.4-8.2)
[2023-07-12 15:41] LABS: ANISOCYTOSIS 2+; MACROCYTOSIS 0; OVALOCYTE 1+
[2023-07-12] MEDS ORDERED: dilTIAZem HCL 50 MG/10 ML - 10 ML VIAL IVPUSH PRN (17:16)
[2023-07-12] MEDS ORDERED: dilTIAZem HCL 60 MG TABLET ONE (17:50)
[2023-07-12] MEDS: dilTIAZem HCL 60 MG TABLET PO SCH (18:12)
[2023-07-12] MEDS: INSULIN ASPART SLIDING SCALE (NOVOLOG) 1 VIAL SQ SCH (18:13)
[2023-07-12] MEDS ORDERED: ALPRAZolam 0.25 MG TABLET ONE ×2 (18:23→18:49)
[2023-07-12] MEDS: ALPRAZolam 0.25 MG TABLET PO ONE ×2 (18:27→18:30)
[2023-07-12] MEDS ORDERED: ALPRAZolam 1 MG TABLET PO ONE (18:35)
[2023-07-12] MEDS ORDERED: ALBUTEROL SULFATE 0.021% (0.63 MG/3 ML) VIAL.NEB NEB ONE (18:41)
[2023-07-12 19:22] LABS: BASO % 0.3 % (0-2.0); EOS % 0.1 % (0-4.5); HEMOGLOBIN 7.8 GM/dL (11.7-16.9); MCHC 26.8 g/dl (32.0-35.9); MEAN CELL VOLUME 70.7 fl (80-96); MEAN PLT VOLUME 9.1 fl (7.5-11.1); MONO % 0.6 % (3.8-10.2); PLATELET COUNT 458 10^3/uL (134-434); WHITE BLOOD COUNT 9.4 K/mm3 (4.0-10.0)
[2023-07-12 20:11] LABS: ANISOCYTOSIS 2+; MACROCYTOSIS 1+; OVALOCYTE 2+; TEAR DROP CELLS 1+
[2023-07-12 20:19] LABS: PLATELET ESTIMATE ADEQUATE
[2023-07-13] MEDS ORDERED: ALBUTEROL SO4 2.5/IPRATROPIUM 0.5 INH SOL 3 ML VIAL.NEB. NEB ONE ×4 (00:52→21:19)
[2023-07-13] MEDS ORDERED: DOCUSATE SODIUM 100 MG CAPSULE (FP) PO ONE ×2 (00:59→21:21)
[2023-07-13] MEDS ORDERED: HEPARIN NA (PORCINE) 5,000 UNITS/ML 1ML VIAL ONE (00:59)
[2023-07-13] MEDS ORDERED: dilTIAZem HCL 60 MG TABLET ONE ×2 (00:59→06:36)
[2023-07-13] MEDS ORDERED: busPIRone HCL 5 MG TABLET ONE ×2 (01:00→21:20)
[2023-07-13] MEDS: HEPARIN NA (PORCINE) 5,000 UNITS/ML 1ML VIAL SQ SCH ×3 (01:10→21:46)
[2023-07-13] MEDS: busPIRone HCL 5 MG TABLET PO SCH ×3 (01:10→21:46)
[2023-07-13] MEDS: DOCUSATE SODIUM 100 MG CAPSULE (FP) PO SCH ×2 (01:10→21:46)
[2023-07-13] MEDS: dilTIAZem HCL 60 MG TABLET PO SCH ×4 (01:10→18:44)
[2023-07-13] MEDS: MELATONIN 1 MG TABLET PO SCH ×2 (01:30→21:15)
[2023-07-13] MEDS: ALPRAZolam 0.25 MG TABLET PO SCH ×3 (01:34→21:15)
[2023-07-13] MEDS: ALBUTEROL SO4 2.5/IPRATROPIUM 0.5 INH SOL 3 ML VIAL.NEB. NEB SCH ×7 (03:10→21:15)
[2023-07-13] MEDS: INSULIN ASPART SLIDING SCALE (NOVOLOG) 1 VIAL SQ SCH ×3 (08:20→16:54)
[2023-07-13 09:15] LABS: POTASSIUM 4.7 mmol/L (3.5-5.1)
[2023-07-13 09:19] LABS: BLOOD UREA NITROGEN 21.8 mg/dL (7-18)
[2023-07-13 09:22] LABS: CREATININE 0.8 mg/dL (0.55-1.3)
[2023-07-13 09:24] LABS: HEMATOCRIT 29.8 % (35.4-49); HEMOGLOBIN 8.1 GM/dL (11.7-16.9); MCHC 27.2 g/dl (32.0-35.9); MEAN CELL VOLUME 72.6 fl (80-96); MEAN PLT VOLUME 9.4 fl (7.5-11.1); PLATELET COUNT 402 10^3/uL (134-434); WHITE BLOOD COUNT 4.9 K/mm3 (4.0-10.0)
[2023-07-13 09:29] LABS: CALCIUM 9.5 mg/dL (8.5-10.1)
[2023-07-13 09:30] LABS: MCH 19.7 pg (25.7-33.7)
[2023-07-13] MEDS ORDERED: IRON SUCROSE INJECTION 200 MG in SODIUM CHLORIDE 90 ML IVPB ONE (09:41)
[2023-07-13] MEDS ORDERED: ALPRAZolam 1 MG TABLET ONE (09:51)
[2023-07-13] MEDS ORDERED: PANTOPRAZOLE SODIUM 40 MG VIAL ONE (09:57)
[2023-07-13] MEDS ORDERED: predniSONE 20 MG TABLET (UD) PO SCH (10:00)
[2023-07-13] MEDS ORDERED: RIVAROXABAN 20 MG TABLET PO SCH (10:00)
[2023-07-13] MEDS: ESCITALOPRAM OXALATE 20 MG TABLET PO SCH (10:03)
[2023-07-13] MEDS: PANTOPRAZOLE SODIUM 40 MG VIAL IVPUSH SCH (10:03)
[2023-07-13] MEDS: FUROSEMIDE 40 MG TABLET (FP) PO SCH (10:03)
[2023-07-13] MEDS: POLYETHYLENE GLYCOL (HEALTHYLAX) 3350 17 GM PACKET PO SCH (10:03)
[2023-07-13] MEDS: AZITHROMYCIN 500 MG TABLET PO SCH (10:04)
[2023-07-13] MEDS: CEFTRIAXONE 1 GM in DEXTROSE 5%-WATER - 50 ML IVPB SCH (10:55)
[2023-07-13] MEDS ORDERED: CEFTRIAXONE 1 GM/50 ML BAG ONE (11:00)
[2023-07-13] MEDS ORDERED: methylPREDNISolone NA SUCC 40 MG/1 ML VIAL ONE ×2 (13:48→21:21)
[2023-07-13] MEDS: methylPREDNISolone NA SUCC 40 MG/1 ML VIAL IVPUSH SCH ×2 (13:55→21:15)
[2023-07-13] MEDS ORDERED: ALBUTEROL SO4 HFA INHALER IH ONE ×2 (14:26→15:00)
[2023-07-13] MEDS ORDERED: MELATONIN 5 MG TABLETS ONE (21:20)
[2023-07-13] MEDS ORDERED: ALPRAZolam 0.25 MG TABLET ONE (21:20)
[2023-07-14] MEDS ORDERED: ALBUTEROL SO4 2.5/IPRATROPIUM 0.5 INH SOL 3 ML VIAL.NEB. NEB ONE ×2 (00:14→04:10)
[2023-07-14] MEDS: ALBUTEROL SO4 2.5/IPRATROPIUM 0.5 INH SOL 3 ML VIAL.NEB. NEB SCH ×5 (00:15→21:34)
[2023-07-14] MEDS ORDERED: dilTIAZem HCL 60 MG TABLET ONE ×2 (01:24→06:35)
[2023-07-14] MEDS: dilTIAZem HCL 60 MG TABLET PO SCH ×5 (01:31→23:41)
[2023-07-14] MEDS ORDERED: methylPREDNISolone NA SUCC 40 MG/1 ML VIAL ONE (06:36)
[2023-07-14] MEDS: methylPREDNISolone NA SUCC 40 MG/1 ML VIAL IVPUSH SCH ×2 (06:47→14:21)
[2023-07-14] MEDS: INSULIN ASPART SLIDING SCALE (NOVOLOG) 1 VIAL SQ SCH ×3 (07:48→18:23)
[2023-07-14] MEDS ORDERED: busPIRone HCL 5 MG TABLET ONE (09:33)
[2023-07-14] MEDS ORDERED: ALPRAZolam 1 MG TABLET ONE (09:33)
[2023-07-14] MEDS ORDERED: CEFTRIAXONE 1 GM/50 ML BAG ONE (09:34)
[2023-07-14] MEDS: HEPARIN NA (PORCINE) 5,000 UNITS/ML 1ML VIAL SQ SCH ×2 (10:00→21:07)
[2023-07-14] MEDS: AZITHROMYCIN 500 MG TABLET PO SCH (10:00)
[2023-07-14] MEDS: ALPRAZolam 0.25 MG TABLET PO SCH ×2 (10:00→21:16)
[2023-07-14] MEDS: PANTOPRAZOLE SODIUM 40 MG VIAL IVPUSH SCH (10:00)
[2023-07-14] MEDS: FUROSEMIDE 40 MG TABLET (FP) PO SCH (10:00)
[2023-07-14] MEDS: POLYETHYLENE GLYCOL (HEALTHYLAX) 3350 17 GM PACKET PO SCH (10:00)
[2023-07-14] MEDS: busPIRone HCL 5 MG TABLET PO SCH ×2 (10:00→21:06)
[2023-07-14] MEDS: CEFTRIAXONE 1 GM in DEXTROSE 5%-WATER - 50 ML IVPB SCH (10:00)
[2023-07-14] MEDS: ESCITALOPRAM OXALATE 20 MG TABLET PO SCH (10:00)
[2023-07-14 12:58] LABS: HEMATOCRIT 30.8 % (35.4-49); HEMOGLOBIN 8.3 GM/dL (11.7-16.9); MCHC 26.8 g/dl (32.0-35.9); MEAN CELL VOLUME 73.4 fl (80-96); MEAN PLT VOLUME 9.3 fl (7.5-11.1); PLATELET COUNT 545 10^3/uL (134-434); RDW 19.1 % (11.9-15.9); WHITE BLOOD COUNT 9.1 K/mm3 (4.0-10.0)
[2023-07-14 13:01] LABS: MCH 19.7 pg (25.7-33.7)
[2023-07-14 13:24] LABS: POTASSIUM 4.9 mmol/L (3.5-5.1)
[2023-07-14 13:26] LABS: ANISOCYTOSIS 3+; MACROCYTOSIS 0
[2023-07-14 13:31] LABS: ALBUMIN 3.3 g/dl (3.4-5.0); BLOOD UREA NITROGEN 20.9 mg/dL (7-18); CALCIUM 9.2 mg/dL (8.5-10.1)
[2023-07-14 13:32] LABS: CREATININE 0.8 mg/dL (0.55-1.3)
[2023-07-14 13:33] LABS: BILIRUBIN,TOTAL 0.3 mg/dL (0.2-1); TOT PROT 6.5 g/dl (6.4-8.2)
[2023-07-14] MEDS ORDERED: ALBUTEROL SO4 0.083% IH SOL 2.5 MG/3 ML VIAL.NEB. NEB PRN (14:23)
[2023-07-14] MEDS ORDERED: methylPREDNISolone NA SUCC 40 MG/1 ML VIAL IVPUSH SCH (14:30)
[2023-07-14] MEDS: METOPROLOL TARTRATE 25 MG TABLET (FP) PO SCH ×2 (18:23→21:16)
[2023-07-14] MEDS: methylPREDNISolone NA SUCC 125 MG/2 ML VIAL IVPUSH SCH ×2 (18:37→22:48)
[2023-07-14] MEDS: DOCUSATE SODIUM 100 MG CAPSULE (FP) PO SCH (21:06)
[2023-07-14] MEDS: MELATONIN 1 MG TABLET PO SCH (21:16)
[2023-07-15] MEDS: INSULIN ASPART SLIDING SCALE (NOVOLOG) 1 VIAL SQ SCH ×3 (06:26→18:28)
[2023-07-15] MEDS: methylPREDNISolone NA SUCC 125 MG/2 ML VIAL IVPUSH SCH ×3 (06:26→23:52)
[2023-07-15] MEDS: dilTIAZem HCL 60 MG TABLET PO SCH ×4 (06:26→23:52)
[2023-07-15 07:23] LABS: HEMOGLOBIN 7.8 GM/dL (11.7-16.9); MCH 20.4 pg (25.7-33.7); MCHC 27.7 g/dl (32.0-35.9); MEAN CELL VOLUME 73.6 fl (80-96); MEAN PLT VOLUME 9.3 fl (7.5-11.1); PLATELET COUNT 446 10^3/uL (134-434); RBC 3.81 M/mm3 (4.00-5.60); RDW 19.9 % (11.9-15.9); WHITE BLOOD COUNT 7.6 K/mm3 (4.0-10.0)
[2023-07-15 07:31] LABS: INR 1.02 (0.83-1.09); PROTHROMBIN TIME (PATIENT) 11.8 SEC (9.7-13.0)
[2023-07-15 07:46] LABS: POTASSIUM 4.5 mmol/L (3.5-5.1)
[2023-07-15 08:00] LABS: CALCIUM 9.2 mg/dL (8.5-10.1)
[2023-07-15 08:01] LABS: ALBUMIN 3.2 g/dl (3.4-5.0); BLOOD UREA NITROGEN 27.4 mg/dL (7-18); MAGNESIUM 2.6 mg/dL (1.8-2.4)
[2023-07-15 08:04] LABS: CREATININE 0.6 mg/dL (0.55-1.3); PHOSPHOROUS 3.9 mg/dL (2.5-4.9)
[2023-07-15 08:05] LABS: TOT PROT 5.8 g/dl (6.4-8.2)
[2023-07-15 08:06] LABS: BILIRUBIN,TOTAL 0.3 mg/dL (0.2-1)
[2023-07-15] MEDS: ALBUTEROL SO4 2.5/IPRATROPIUM 0.5 INH SOL 3 ML VIAL.NEB. NEB SCH ×3 (08:37→21:48)
[2023-07-15 09:17] LABS: ANISOCYTOSIS 2+; MACROCYTOSIS 0
[2023-07-15] MEDS: HEPARIN NA (PORCINE) 5,000 UNITS/ML 1ML VIAL SQ SCH ×2 (09:18→21:21)
[2023-07-15] MEDS: FUROSEMIDE 40 MG TABLET (FP) PO SCH (09:18)
[2023-07-15] MEDS: busPIRone HCL 5 MG TABLET PO SCH ×2 (09:18→21:20)
[2023-07-15] MEDS: PANTOPRAZOLE SODIUM 40 MG VIAL IVPUSH SCH (09:18)
[2023-07-15] MEDS: ESCITALOPRAM OXALATE 20 MG TABLET PO SCH (09:18)
[2023-07-15] MEDS: METOPROLOL TARTRATE 25 MG TABLET (FP) PO SCH ×2 (09:18→21:20)
[2023-07-15] MEDS: POLYETHYLENE GLYCOL (HEALTHYLAX) 3350 17 GM PACKET PO SCH (09:19)
[2023-07-15] MEDS: ALPRAZolam 0.25 MG TABLET PO SCH ×2 (09:19→21:20)
[2023-07-15] MEDS: CEFTRIAXONE 1 GM in DEXTROSE 5%-WATER - 50 ML IVPB SCH (09:19)
[2023-07-15] MEDS: AZITHROMYCIN 500 MG TABLET PO SCH (11:44)
[2023-07-15 15:54] VITALS: BMI 26.8
[2023-07-15] MEDS: MELATONIN 1 MG TABLET PO SCH (21:19)
[2023-07-15] MEDS: DOCUSATE SODIUM 100 MG CAPSULE (FP) PO SCH (21:20)
[2023-07-16] MEDS: methylPREDNISolone NA SUCC 125 MG/2 ML VIAL IVPUSH SCH ×3 (05:39→23:19)
[2023-07-16] MEDS: dilTIAZem HCL 60 MG TABLET PO SCH ×3 (05:39→17:03)
[2023-07-16] MEDS: INSULIN ASPART SLIDING SCALE (NOVOLOG) 1 VIAL SQ SCH ×3 (06:11→16:44)
[2023-07-16 06:33] LABS: ALLENS TEST POSITIVE; ARTERIAL BLD GAS O2 SATURATION 97.4 % (95-98); ARTERIAL BLOOD GAS BASE EXCESS 10.5 mmol/L (-2-2); ARTERIAL BLOOD GAS PO2 106.2 mmHg (80-100); ARTERIAL BLOOD GAS pH 7.355 (7.350-7.450)
[2023-07-16 06:34] LABS: VENT MODE ST; VENT RATE 14
[2023-07-16 07:49] LABS: HEMATOCRIT 28.1 % (35.4-49); HEMOGLOBIN 7.8 GM/dL (11.7-16.9); MCH 20.3 pg (25.7-33.7); MCHC 27.7 g/dl (32.0-35.9); MEAN CELL VOLUME 73.2 fl (80-96); MEAN PLT VOLUME 9.3 fl (7.5-11.1); PLATELET COUNT 441 10^3/uL (134-434); RBC 3.84 M/mm3 (4.00-5.60); RDW 19.7 % (11.9-15.9); WHITE BLOOD COUNT 7.5 K/mm3 (4.0-10.0)
[2023-07-16 07:54] LABS: CHLORIDE 88 mmol/L (98-107); POTASSIUM 4.4 mmol/L (3.5-5.1); SODIUM 138 mmol/L (136-145)
[2023-07-16 07:57] LABS: CALCIUM 9.7 mg/dL (8.5-10.1)
[2023-07-16 07:58] LABS: ALBUMIN 3.3 g/dl (3.4-5.0); BLOOD UREA NITROGEN 31.3 mg/dL (7-18); GLUCOSE,RANDOM 136 mg/dL (74-106); MAGNESIUM 2.7 mg/dL (1.8-2.4)
[2023-07-16 08:00] LABS: SGPT/ALT 14 U/L (13-61)
[2023-07-16 08:01] LABS: CREATININE 0.6 mg/dL (0.55-1.3); PHOSPHOROUS 3.2 mg/dL (2.5-4.9); SGOT/AST 5 U/L (15-37)
[2023-07-16 08:02] LABS: BILIRUBIN,TOTAL 0.4 mg/dL (0.2-1); TOT PROT 5.9 g/dl (6.4-8.2)
[2023-07-16 08:03] LABS: ALK PHOS 60 U/L (45-117)
[2023-07-16 08:18] LABS: ANION GAP 5 mmol/L (4-13); CO2 > 45 mmol/L (21-32)
[2023-07-16] MEDS: ALBUTEROL SO4 2.5/IPRATROPIUM 0.5 INH SOL 3 ML VIAL.NEB. NEB SCH ×3 (09:40→20:00)
[2023-07-16] MEDS: METOPROLOL TARTRATE 25 MG TABLET (FP) PO SCH ×2 (10:59→21:07)
[2023-07-16] MEDS: HEPARIN NA (PORCINE) 5,000 UNITS/ML 1ML VIAL SQ SCH ×2 (10:59→21:06)
[2023-07-16] MEDS: PANTOPRAZOLE SODIUM 40 MG VIAL IVPUSH SCH (10:59)
[2023-07-16] MEDS: ESCITALOPRAM OXALATE 20 MG TABLET PO SCH (10:59)
[2023-07-16] MEDS: busPIRone HCL 5 MG TABLET PO SCH ×2 (10:59→21:06)
[2023-07-16] MEDS: FUROSEMIDE 40 MG TABLET (FP) PO SCH (10:59)
[2023-07-16] MEDS: ALPRAZolam 0.25 MG TABLET PO SCH ×3 (10:59→21:07)
[2023-07-16] MEDS: CEFTRIAXONE 1 GM in DEXTROSE 5%-WATER - 50 ML IVPB SCH (11:00)
[2023-07-16] MEDS: POLYETHYLENE GLYCOL (HEALTHYLAX) 3350 17 GM PACKET PO SCH (11:00)
[2023-07-16] MEDS ORDERED: IRON SUCROSE INJECTION 200 MG in SODIUM CHLORIDE 90 ML IVPB ONE (11:25)
[2023-07-16] MEDS ORDERED: FUROSEMIDE 40 MG/4 ML INJECTABLE VIAL IVPUSH ONE ×2 (11:30→12:15)
[2023-07-16] MEDS ORDERED: MAGNESIUM 2GM/50ML STERILE WATER IVPB IVPB ONE (12:28)
[2023-07-16] MEDS: DOCUSATE SODIUM 100 MG CAPSULE (FP) PO SCH (21:06)
[2023-07-16] MEDS: MELATONIN 1 MG TABLET PO SCH (21:06)
[2023-07-17] MEDS: dilTIAZem HCL 60 MG TABLET PO SCH ×5 (00:09→23:41)
[2023-07-17] MEDS: ALPRAZolam 0.25 MG TABLET PO SCH ×3 (05:34→21:15)
[2023-07-17] MEDS: methylPREDNISolone NA SUCC 125 MG/2 ML VIAL IVPUSH SCH (05:35)
[2023-07-17] MEDS: INSULIN ASPART SLIDING SCALE (NOVOLOG) 1 VIAL SQ SCH ×4 (06:36→17:20)
[2023-07-17] MEDS ORDERED: INSULIN (NOVOLOG) ASPART 100 UNITS/ML 10ML VIAL ONE (06:46)
[2023-07-17] MEDS: ALBUTEROL SO4 2.5/IPRATROPIUM 0.5 INH SOL 3 ML VIAL.NEB. NEB SCH ×3 (07:28→20:29)
[2023-07-17 07:33] LABS: CHLORIDE 84 mmol/L (98-107); SODIUM 139 mmol/L (136-145)
[2023-07-17 07:39] LABS: CALCIUM 9.7 mg/dL (8.5-10.1)
[2023-07-17 07:40] LABS: ALBUMIN 3.5 g/dl (3.4-5.0); BLOOD UREA NITROGEN 32.8 mg/dL (7-18); GLUCOSE,RANDOM 160 mg/dL (74-106); MAGNESIUM 2.9 mg/dL (1.8-2.4)
[2023-07-17 07:43] LABS: CREATININE 0.7 mg/dL (0.55-1.3); SGOT/AST 8 U/L (15-37); SGPT/ALT 15 U/L (13-61)
[2023-07-17 07:44] LABS: BILIRUBIN,TOTAL 0.4 mg/dL (0.2-1); PHOSPHOROUS 3.9 mg/dL (2.5-4.9); TOT PROT 6.3 g/dl (6.4-8.2)
[2023-07-17 07:45] LABS: ALK PHOS 62 U/L (45-117)
[2023-07-17 07:52] LABS: ANION GAP 9 mmol/L (4-13); CO2 > 45 mmol/L (21-32)
[2023-07-17 08:05] LABS: HEMATOCRIT 31.2 % (35.4-49); HEMOGLOBIN 8.6 GM/dL (11.7-16.9); MCH 20.3 pg (25.7-33.7); MCHC 27.6 g/dl (32.0-35.9); MEAN CELL VOLUME 73.4 fl (80-96); MEAN PLT VOLUME 9.3 fl (7.5-11.1); PLATELET COUNT 484 10^3/uL (134-434); RBC 4.25 M/mm3 (4.00-5.60); RDW 20.6 % (11.9-15.9); WHITE BLOOD COUNT 7.8 K/mm3 (4.0-10.0)
[2023-07-17] MEDS: ESCITALOPRAM OXALATE 20 MG TABLET PO SCH (09:29)
[2023-07-17] MEDS: HEPARIN NA (PORCINE) 5,000 UNITS/ML 1ML VIAL SQ SCH ×2 (09:29→21:12)
[2023-07-17] MEDS: METOPROLOL TARTRATE 25 MG TABLET (FP) PO SCH ×2 (09:29→21:12)
[2023-07-17] MEDS: PANTOPRAZOLE SODIUM 40 MG VIAL IVPUSH SCH (09:29)
[2023-07-17] MEDS: POLYETHYLENE GLYCOL (HEALTHYLAX) 3350 17 GM PACKET PO SCH (09:29)
[2023-07-17] MEDS: CEFTRIAXONE 1 GM in DEXTROSE 5%-WATER - 50 ML IVPB SCH (09:29)
[2023-07-17] MEDS: FUROSEMIDE 40 MG/4 ML INJECTABLE VIAL IVPUSH SCH (09:29)
[2023-07-17] MEDS: busPIRone HCL 5 MG TABLET PO SCH ×2 (09:30→21:11)
[2023-07-17] MEDS: methylPREDNISolone NA SUCC 40 MG/1 ML VIAL IVPUSH SCH (18:01)
[2023-07-17] MEDS: DOCUSATE SODIUM 100 MG CAPSULE (FP) PO SCH (21:12)
[2023-07-17] MEDS: MELATONIN 1 MG TABLET PO SCH (21:13)
[2023-07-18] MEDS: methylPREDNISolone NA SUCC 40 MG/1 ML VIAL IVPUSH SCH ×3 (01:11→17:26)
[2023-07-18] MEDS: dilTIAZem HCL 60 MG TABLET PO SCH ×4 (06:44→23:12)
[2023-07-18] MEDS: ALPRAZolam 0.25 MG TABLET PO SCH ×4 (06:44→23:08)
[2023-07-18] MEDS: INSULIN ASPART SLIDING SCALE (NOVOLOG) 1 VIAL SQ SCH ×3 (06:45→17:26)
[2023-07-18 07:15] LABS: HEMATOCRIT 29.5 % (35.4-49); HEMOGLOBIN 8.5 GM/dL (11.7-16.9); MCHC 28.7 g/dl (32.0-35.9); MEAN CELL VOLUME 73.2 fl (80-96); MEAN PLT VOLUME 9.6 fl (7.5-11.1); PLATELET COUNT 367 10^3/uL (134-434); RBC 4.04 M/mm3 (4.00-5.60); RDW 20.7 % (11.9-15.9); WHITE BLOOD COUNT 6.3 K/mm3 (4.0-10.0)
[2023-07-18] MEDS: ALBUTEROL SO4 2.5/IPRATROPIUM 0.5 INH SOL 3 ML VIAL.NEB. NEB SCH ×3 (07:25→19:52)
[2023-07-18 07:27] LABS: CHLORIDE 86 mmol/L (98-107); POTASSIUM 4.2 mmol/L (3.5-5.1); SODIUM 139 mmol/L (136-145)
[2023-07-18 07:29] LABS: CALCIUM 9.4 mg/dL (8.5-10.1)
[2023-07-18 07:30] LABS: ALBUMIN 3.4 g/dl (3.4-5.0); GLUCOSE,RANDOM 159 mg/dL (74-106); MAGNESIUM 2.9 mg/dL (1.8-2.4)
[2023-07-18 07:33] LABS: CREATININE 0.5 mg/dL (0.55-1.3); SGOT/AST 12 U/L (15-37); SGPT/ALT 15 U/L (13-61)
[2023-07-18 07:34] LABS: BILIRUBIN,TOTAL 0.4 mg/dL (0.2-1)
[2023-07-18 07:36] LABS: ALK PHOS 57 U/L (45-117)
[2023-07-18 07:42] LABS: ANION GAP 8 mmol/L (4-13); CO2 > 45 mmol/L (21-32)
[2023-07-18] MEDS ORDERED: MAGNESIUM 2GM/50ML STERILE WATER IVPB IVPB ONE (08:34)
[2023-07-18] MEDS: POLYETHYLENE GLYCOL (HEALTHYLAX) 3350 17 GM PACKET PO SCH (09:25)
[2023-07-18] MEDS: PANTOPRAZOLE SODIUM 40 MG VIAL IVPUSH SCH (09:25)
[2023-07-18] MEDS: HEPARIN NA (PORCINE) 5,000 UNITS/ML 1ML VIAL SQ SCH ×2 (09:27→23:13)
[2023-07-18] MEDS: FUROSEMIDE 40 MG/4 ML INJECTABLE VIAL IVPUSH SCH (09:28)
[2023-07-18] MEDS: METOPROLOL TARTRATE 25 MG TABLET (FP) PO SCH ×2 (09:30→23:09)
[2023-07-18] MEDS: ESCITALOPRAM OXALATE 20 MG TABLET PO SCH (09:30)
[2023-07-18] MEDS: busPIRone HCL 5 MG TABLET PO SCH ×2 (09:31→23:08)
[2023-07-18] MEDS: CEFTRIAXONE 1 GM in DEXTROSE 5%-WATER - 50 ML IVPB SCH (09:42)
[2023-07-18] MEDS ORDERED: INSULIN (NOVOLOG) ASPART 100 UNITS/ML 10ML VIAL ONE (13:22)
[2023-07-18] MEDS ORDERED: PIPERACILLIN/TAZOB 3.375 GM 3.375 GM in DEXTROSE 5%-WATER - 50 ML IVPB SCH (20:45)
[2023-07-18] MEDS: MELATONIN 1 MG TABLET PO SCH (23:09)
[2023-07-18] MEDS: DOCUSATE SODIUM 100 MG CAPSULE (FP) PO SCH (23:09)
[2023-07-18] MEDS: PIPERACILLIN/TAZOB 3.375 GM 3.375 GM in DEXTROSE 5%-WATER - 50 ML IVPB SCH (23:13)
[2023-07-19] MEDS: methylPREDNISolone NA SUCC 40 MG/1 ML VIAL IVPUSH SCH ×3 (02:58→17:30)
[2023-07-19] MEDS: PIPERACILLIN/TAZOB 3.375 GM 3.375 GM in DEXTROSE 5%-WATER - 50 ML IVPB SCH ×2 (04:31→09:20)
[2023-07-19] MEDS: ALPRAZolam 0.25 MG TABLET PO SCH ×4 (05:29→21:36)
[2023-07-19] MEDS: dilTIAZem HCL 60 MG TABLET PO SCH ×3 (05:29→17:30)
[2023-07-19] MEDS: INSULIN ASPART SLIDING SCALE (NOVOLOG) 1 VIAL SQ SCH ×3 (06:03→17:29)
[2023-07-19] MEDS ORDERED: INSULIN (NOVOLOG) ASPART 100 UNITS/ML 10ML VIAL ONE ×2 (07:22→12:19)
[2023-07-19 07:48] LABS: HEMATOCRIT 29.4 % (35.4-49); HEMOGLOBIN 8.1 GM/dL (11.7-16.9); MCH 20.4 pg (25.7-33.7); MCHC 27.6 g/dl (32.0-35.9); MEAN CELL VOLUME 74.1 fl (80-96); MEAN PLT VOLUME 9.2 fl (7.5-11.1); PLATELET COUNT 310 10^3/uL (134-434); RBC 3.97 M/mm3 (4.00-5.60); RDW 21.4 % (11.9-15.9); WHITE BLOOD COUNT 7.4 K/mm3 (4.0-10.0)
[2023-07-19] MEDS: ALBUTEROL SO4 2.5/IPRATROPIUM 0.5 INH SOL 3 ML VIAL.NEB. NEB SCH ×3 (08:10→20:45)
[2023-07-19 08:12] LABS: CHLORIDE 87 mmol/L (98-107); SODIUM 138 mmol/L (136-145)
[2023-07-19 08:17] LABS: CALCIUM 9.1 mg/dL (8.5-10.1); GLUCOSE,RANDOM 166 mg/dL (74-106)
[2023-07-19 08:18] LABS: BLOOD UREA NITROGEN 30.3 mg/dL (7-18)
[2023-07-19 08:20] LABS: CREATININE 0.6 mg/dL (0.55-1.3); PHOSPHOROUS 4.2 mg/dL (2.5-4.9); SGPT/ALT 31 U/L (13-61)
[2023-07-19 08:21] LABS: SGOT/AST 14 U/L (15-37)
[2023-07-19 08:22] LABS: BILIRUBIN,TOTAL 0.5 mg/dL (0.2-1); TOT PROT 5.6 g/dl (6.4-8.2)
[2023-07-19 08:23] LABS: ALK PHOS 52 U/L (45-117)
[2023-07-19 08:42] LABS: ANION GAP 6 mmol/L (4-13); CO2 > 45 mmol/L (21-32)
[2023-07-19] MEDS: ESCITALOPRAM OXALATE 20 MG TABLET PO SCH (09:20)
[2023-07-19] MEDS: FUROSEMIDE 40 MG/4 ML INJECTABLE VIAL IVPUSH SCH (09:20)
[2023-07-19] MEDS: HEPARIN NA (PORCINE) 5,000 UNITS/ML 1ML VIAL SQ SCH ×2 (09:20→21:38)
[2023-07-19] MEDS: busPIRone HCL 5 MG TABLET PO SCH ×2 (09:21→21:37)
[2023-07-19] MEDS: METOPROLOL TARTRATE 25 MG TABLET (FP) PO SCH ×2 (09:21→21:36)
[2023-07-19] MEDS: PANTOPRAZOLE 40 MG TABLET PO SCH (09:21)
[2023-07-19] MEDS: POLYETHYLENE GLYCOL (HEALTHYLAX) 3350 17 GM PACKET PO SCH (09:48)
[2023-07-19] MEDS: PIPERACILLIN/TAZOB 4.5 GM 4.5 GM in DEXTROSE 5%-WATER 100 ML IVPB SCH (17:30)
[2023-07-19] MEDS: RIVAROXABAN 20 MG TABLET PO SCH (17:30)
[2023-07-19] MEDS: MELATONIN 1 MG TABLET PO SCH (21:37)
[2023-07-20] MEDS: DOCUSATE SODIUM 100 MG CAPSULE (FP) PO SCH ×2 (00:37→21:02)
[2023-07-20] MEDS: dilTIAZem HCL 60 MG TABLET PO SCH ×4 (00:37→17:30)
[2023-07-20] MEDS: methylPREDNISolone NA SUCC 40 MG/1 ML VIAL IVPUSH SCH ×3 (01:02→17:30)
[2023-07-20] MEDS: PIPERACILLIN/TAZOB 4.5 GM 4.5 GM in DEXTROSE 5%-WATER 100 ML IVPB SCH ×3 (01:03→17:30)
[2023-07-20] MEDS: ALPRAZolam 0.25 MG TABLET PO SCH ×5 (06:25→21:04)
[2023-07-20] MEDS: INSULIN ASPART SLIDING SCALE (NOVOLOG) 1 VIAL SQ SCH ×3 (06:25→17:30)
[2023-07-20 07:23] LABS: HEMATOCRIT 31.5 % (35.4-49); HEMOGLOBIN 8.8 GM/dL (11.7-16.9); MCH 20.7 pg (25.7-33.7); MCHC 27.7 g/dl (32.0-35.9); MEAN CELL VOLUME 74.6 fl (80-96); MEAN PLT VOLUME 9.7 fl (7.5-11.1); PLATELET COUNT 299 10^3/uL (134-434); RBC 4.23 M/mm3 (4.00-5.60); RDW 21.7 % (11.9-15.9)
[2023-07-20] MEDS: ALBUTEROL SO4 2.5/IPRATROPIUM 0.5 INH SOL 3 ML VIAL.NEB. NEB SCH ×3 (07:29→20:58)
[2023-07-20 07:41] LABS: CHLORIDE 86 mmol/L (98-107); POTASSIUM 3.9 mmol/L (3.5-5.1); SODIUM 137 mmol/L (136-145)
[2023-07-20 07:49] LABS: ALBUMIN 2.9 g/dl (3.4-5.0); BLOOD UREA NITROGEN 28.6 mg/dL (7-18); GLUCOSE,RANDOM 153 mg/dL (74-106); MAGNESIUM 2.9 mg/dL (1.8-2.4)
[2023-07-20 07:51] LABS: SGPT/ALT 47 U/L (13-61)
[2023-07-20 07:52] LABS: CREATININE 0.6 mg/dL (0.55-1.3); PHOSPHOROUS 3.9 mg/dL (2.5-4.9); SGOT/AST 11 U/L (15-37)
[2023-07-20 07:53] LABS: BILIRUBIN,TOTAL 0.5 mg/dL (0.2-1); TOT PROT 5.5 g/dl (6.4-8.2)
[2023-07-20 07:54] LABS: ALK PHOS 52 U/L (45-117)
[2023-07-20 08:01] LABS: ANION GAP 6 mmol/L (4-13); CO2 > 45 mmol/L (21-32)
[2023-07-20] MEDS: FUROSEMIDE 40 MG/4 ML INJECTABLE VIAL IVPUSH SCH (10:14)
[2023-07-20] MEDS: busPIRone HCL 5 MG TABLET PO SCH ×2 (10:15→21:03)
[2023-07-20] MEDS: HEPARIN NA (PORCINE) 5,000 UNITS/ML 1ML VIAL SQ SCH ×2 (10:16→21:05)
[2023-07-20] MEDS: ESCITALOPRAM OXALATE 20 MG TABLET PO SCH (10:17)
[2023-07-20] MEDS: POLYETHYLENE GLYCOL (HEALTHYLAX) 3350 17 GM PACKET PO SCH (10:17)
[2023-07-20] MEDS: METOPROLOL TARTRATE 25 MG TABLET (FP) PO SCH ×2 (10:18→21:03)
[2023-07-20] MEDS: PANTOPRAZOLE 40 MG TABLET PO SCH (10:18)
[2023-07-20] MEDS: RIVAROXABAN 20 MG TABLET PO SCH (17:30)
[2023-07-20] MEDS: MELATONIN 1 MG TABLET PO SCH (21:02)
[2023-07-21] MEDS: dilTIAZem HCL 60 MG TABLET PO SCH ×4 (00:55→17:46)
[2023-07-21] MEDS: methylPREDNISolone NA SUCC 40 MG/1 ML VIAL IVPUSH SCH ×3 (01:06→21:10)
[2023-07-21] MEDS: PIPERACILLIN/TAZOB 4.5 GM 4.5 GM in DEXTROSE 5%-WATER 100 ML IVPB SCH ×3 (01:08→17:46)
[2023-07-21] MEDS: ALPRAZolam 0.25 MG TABLET PO SCH ×4 (06:07→21:10)
[2023-07-21] MEDS: INSULIN ASPART SLIDING SCALE (NOVOLOG) 1 VIAL SQ SCH ×3 (06:07→16:56)
[2023-07-21] MEDS: ALBUTEROL SO4 2.5/IPRATROPIUM 0.5 INH SOL 3 ML VIAL.NEB. NEB SCH ×3 (07:35→20:14)
[2023-07-21] MEDS: METOPROLOL TARTRATE 25 MG TABLET (FP) PO SCH ×2 (09:30→21:10)
[2023-07-21] MEDS: POLYETHYLENE GLYCOL (HEALTHYLAX) 3350 17 GM PACKET PO SCH (09:30)
[2023-07-21] MEDS: busPIRone HCL 5 MG TABLET PO SCH ×2 (09:30→21:11)
[2023-07-21] MEDS: HEPARIN NA (PORCINE) 5,000 UNITS/ML 1ML VIAL SQ SCH ×2 (09:30→21:10)
[2023-07-21] MEDS: FUROSEMIDE 40 MG/4 ML INJECTABLE VIAL IVPUSH SCH (09:30)
[2023-07-21] MEDS: ESCITALOPRAM OXALATE 20 MG TABLET PO SCH (09:30)
[2023-07-21] MEDS: PANTOPRAZOLE 40 MG TABLET PO SCH (09:35)
[2023-07-21] MEDS: FLUTICASONE/UMECLIDIN/VILANTER(200-62.5-25 TRELEGY ELLIPTA) INAHLER IH SCH (16:25)
[2023-07-21] MEDS: RIVAROXABAN 20 MG TABLET PO SCH (17:46)
[2023-07-21] MEDS: DOCUSATE SODIUM 100 MG CAPSULE (FP) PO SCH (21:10)
[2023-07-21] MEDS: MELATONIN 1 MG TABLET PO SCH (21:10)
[2023-07-22] MEDS: dilTIAZem HCL 60 MG TABLET PO SCH ×5 (00:22→23:15)
[2023-07-22] MEDS: PIPERACILLIN/TAZOB 4.5 GM 4.5 GM in DEXTROSE 5%-WATER 100 ML IVPB SCH ×3 (01:49→17:55)
[2023-07-22] MEDS: ALPRAZolam 0.25 MG TABLET PO SCH ×4 (06:25→21:11)
[2023-07-22] MEDS: INSULIN ASPART SLIDING SCALE (NOVOLOG) 1 VIAL SQ SCH ×3 (06:26→17:16)
[2023-07-22] MEDS: ALBUTEROL SO4 2.5/IPRATROPIUM 0.5 INH SOL 3 ML VIAL.NEB. NEB SCH ×3 (08:53→21:05)
[2023-07-22] MEDS: HEPARIN NA (PORCINE) 5,000 UNITS/ML 1ML VIAL SQ SCH (09:36)
[2023-07-22] MEDS: FUROSEMIDE 40 MG/4 ML INJECTABLE VIAL IVPUSH SCH (09:37)
[2023-07-22] MEDS: PANTOPRAZOLE 40 MG TABLET PO SCH (09:37)
[2023-07-22] MEDS: ESCITALOPRAM OXALATE 20 MG TABLET PO SCH (09:37)
[2023-07-22] MEDS: METOPROLOL TARTRATE 25 MG TABLET (FP) PO SCH ×2 (09:37→21:11)
[2023-07-22] MEDS: busPIRone HCL 5 MG TABLET PO SCH ×2 (09:37→21:11)
[2023-07-22] MEDS: POLYETHYLENE GLYCOL (HEALTHYLAX) 3350 17 GM PACKET PO SCH (09:38)
[2023-07-22] MEDS: methylPREDNISolone NA SUCC 40 MG/1 ML VIAL IVPUSH SCH ×2 (09:43→21:10)
[2023-07-22] MEDS: FLUTICASONE/UMECLIDIN/VILANTER(200-62.5-25 TRELEGY ELLIPTA) INAHLER IH SCH (09:44)
[2023-07-22] MEDS: RIVAROXABAN 20 MG TABLET PO SCH (17:55)
[2023-07-22] MEDS: MELATONIN 1 MG TABLET PO SCH (21:10)
[2023-07-22] MEDS: DOCUSATE SODIUM 100 MG CAPSULE (FP) PO SCH (21:12)
[2023-07-22] MEDS: INSULIN (LEVEMIR) 100 UNITS/ML UNITS SQ SCH (21:15)
[2023-07-23] MEDS: PIPERACILLIN/TAZOB 4.5 GM 4.5 GM in DEXTROSE 5%-WATER 100 ML IVPB SCH ×3 (01:09→17:17)
[2023-07-23] MEDS: INSULIN ASPART SLIDING SCALE (NOVOLOG) 1 VIAL SQ SCH ×3 (06:19→17:18)
[2023-07-23] MEDS: dilTIAZem HCL 60 MG TABLET PO SCH ×3 (06:19→17:00)
[2023-07-23] MEDS: ALPRAZolam 0.25 MG TABLET PO SCH ×3 (06:19→14:11)
[2023-07-23] MEDS: INSULIN (LEVEMIR) 100 UNITS/ML UNITS SQ SCH ×2 (06:21→21:31)
[2023-07-23] MEDS: ALBUTEROL SO4 2.5/IPRATROPIUM 0.5 INH SOL 3 ML VIAL.NEB. NEB SCH ×3 (07:34→19:54)
[2023-07-23 07:39] LABS: CHLORIDE 83 mmol/L (98-107); SODIUM 136 mmol/L (136-145)
[2023-07-23 07:50] LABS: ALBUMIN 2.8 g/dl (3.4-5.0); BLOOD UREA NITROGEN 24.8 mg/dL (7-18); MAGNESIUM 2.7 mg/dL (1.8-2.4)
[2023-07-23 07:53] LABS: CREATININE 0.6 mg/dL (0.55-1.3); GLUCOSE,RANDOM 209 mg/dL (74-106); PHOSPHOROUS 2.7 mg/dL (2.5-4.9); SGOT/AST 4 U/L (15-37); SGPT/ALT 30 U/L (13-61); TOT PROT 5.3 g/dl (6.4-8.2)
[2023-07-23 07:55] LABS: ALK PHOS 52 U/L (45-117); BILIRUBIN,TOTAL 0.6 mg/dL (0.2-1)
[2023-07-23 08:03] LABS: BASO % 0.2 % (0-2.0); HEMOGLOBIN 8.6 GM/dL (11.7-16.9); LYMPH % 3.3 % (8-40); MCH 21.5 pg (25.7-33.7); MCHC 28.7 g/dl (32.0-35.9); MEAN CELL VOLUME 74.9 fl (80-96); MEAN PLT VOLUME 10.7 fl (7.5-11.1); MONO % 5.7 % (3.8-10.2); NEUT % 90.8 % (42.8-82.8); PLATELET COUNT 156 10^3/uL (134-434); RBC 4.01 M/mm3 (4.00-5.60); RDW 22.4 % (11.9-15.9); WHITE BLOOD COUNT 7.6 K/mm3 (4.0-10.0)
[2023-07-23 08:07] LABS: ANION GAP 8 mmol/L (4-13); CO2 > 45 mmol/L (21-32)
[2023-07-23] MEDS ORDERED: FUROSEMIDE 40 MG TABLET (FP) PO SCH (10:00)
[2023-07-23] MEDS: busPIRone HCL 5 MG TABLET PO SCH ×2 (11:00→21:27)
[2023-07-23 11:09] LABS: ANISOCYTOSIS 2+; MACROCYTOSIS 0; OVALOCYTE 1+
[2023-07-23] MEDS: METOPROLOL TARTRATE 25 MG TABLET (FP) PO SCH ×2 (11:14→21:27)
[2023-07-23] MEDS: PANTOPRAZOLE 40 MG TABLET PO SCH (11:14)
[2023-07-23] MEDS: ESCITALOPRAM OXALATE 20 MG TABLET PO SCH (11:14)
[2023-07-23] MEDS: FUROSEMIDE 20 MG TABLET (FP) PO SCH (11:14)
[2023-07-23] MEDS: POLYETHYLENE GLYCOL (HEALTHYLAX) 3350 17 GM PACKET PO SCH (11:15)
[2023-07-23] MEDS: methylPREDNISolone NA SUCC 40 MG/1 ML VIAL IVPUSH SCH ×2 (11:15→22:33)
[2023-07-23] MEDS: FLUTICASONE/UMECLIDIN/VILANTER(200-62.5-25 TRELEGY ELLIPTA) INAHLER IH SCH (11:16)
[2023-07-23] MEDS ORDERED: POTASSIUM CHLORIDE TABS 20 MEQ TABLET.ER (FP) PO ONE (13:00)
[2023-07-23] MEDS: RIVAROXABAN 20 MG TABLET PO SCH (17:17)
[2023-07-23] MEDS ORDERED: dilTIAZem HCL 30 MG TABLET PO ONE (17:46)
[2023-07-23] MEDS: MELATONIN 1 MG TABLET PO SCH (21:26)
[2023-07-23] MEDS: DOCUSATE SODIUM 100 MG CAPSULE (FP) PO SCH (21:27)
[2023-07-24] MEDS: PIPERACILLIN/TAZOB 4.5 GM 4.5 GM in DEXTROSE 5%-WATER 100 ML IVPB SCH ×3 (01:56→17:19)
[2023-07-24] MEDS: INSULIN ASPART SLIDING SCALE (NOVOLOG) 1 VIAL SQ SCH ×3 (05:59→17:18)
[2023-07-24] MEDS: INSULIN (LEVEMIR) 100 UNITS/ML UNITS SQ SCH ×2 (06:00→21:22)
[2023-07-24] MEDS: ALBUTEROL SO4 2.5/IPRATROPIUM 0.5 INH SOL 3 ML VIAL.NEB. NEB SCH ×3 (07:25→20:14)
[2023-07-24 07:30] LABS: HEMATOCRIT 29.2 % (35.4-49); HEMOGLOBIN 8.2 GM/dL (11.7-16.9); MCH 21.3 pg (25.7-33.7); MCHC 28.1 g/dl (32.0-35.9); MEAN CELL VOLUME 75.7 fl (80-96); MEAN PLT VOLUME 11.2 fl (7.5-11.1); PLATELET COUNT 132 10^3/uL (134-434); RBC 3.85 M/mm3 (4.00-5.60); RDW 22.5 % (11.9-15.9); WHITE BLOOD COUNT 13.3 K/mm3 (4.0-10.0)
[2023-07-24 07:58] LABS: CHLORIDE 87 mmol/L (98-107); POTASSIUM 3.5 mmol/L (3.5-5.1); SODIUM 138 mmol/L (136-145)
[2023-07-24 08:01] LABS: CALCIUM 9.5 mg/dL (8.5-10.1)
[2023-07-24 08:02] LABS: ALBUMIN 2.9 g/dl (3.4-5.0); BLOOD UREA NITROGEN 29.9 mg/dL (7-18); GLUCOSE,RANDOM 193 mg/dL (74-106)
[2023-07-24 08:03] LABS: MAGNESIUM 2.3 mg/dL (1.8-2.4)
[2023-07-24 08:05] LABS: SGPT/ALT 32 U/L (13-61)
[2023-07-24 08:06] LABS: PHOSPHOROUS 2.9 mg/dL (2.5-4.9)
[2023-07-24 08:08] LABS: ALK PHOS 55 U/L (45-117); BILIRUBIN,TOTAL 0.5 mg/dL (0.2-1); CREATININE 0.7 mg/dL (0.55-1.3); SGOT/AST 11 U/L (15-37)
[2023-07-24 08:09] LABS: TOT PROT 5.3 g/dl (6.4-8.2)
[2023-07-24 08:12] LABS: ANION GAP 6 mmol/L (4-13); CO2 > 45 mmol/L (21-32)
[2023-07-24 08:54] LABS: ANISOCYTOSIS 3+; MACROCYTOSIS 0; OVALOCYTE 1+
[2023-07-24] MEDS: busPIRone HCL 5 MG TABLET PO SCH ×2 (09:46→21:00)
[2023-07-24] MEDS: FUROSEMIDE 20 MG TABLET (FP) PO SCH (09:46)
[2023-07-24] MEDS: METOPROLOL TARTRATE 25 MG TABLET (FP) PO SCH ×2 (09:47→21:02)
[2023-07-24] MEDS: ALPRAZolam 0.25 MG TABLET PO SCH ×2 (09:47→20:17)
[2023-07-24] MEDS: PANTOPRAZOLE 40 MG TABLET PO SCH (09:48)
[2023-07-24] MEDS: POLYETHYLENE GLYCOL (HEALTHYLAX) 3350 17 GM PACKET PO SCH ×2 (09:48→11:15)
[2023-07-24] MEDS: FLUTICASONE/UMECLIDIN/VILANTER(200-62.5-25 TRELEGY ELLIPTA) INAHLER IH SCH (09:50)
[2023-07-24] MEDS: methylPREDNISolone NA SUCC 40 MG/1 ML VIAL IVPUSH SCH ×2 (09:50→21:02)
[2023-07-24] MEDS: ESCITALOPRAM OXALATE 20 MG TABLET PO SCH (09:54)
[2023-07-24] MEDS ORDERED: INSULIN (NOVOLOG) ASPART 100 UNITS/ML 10ML VIAL ONE (12:18)
[2023-07-24] MEDS: RIVAROXABAN 20 MG TABLET PO SCH (17:19)
[2023-07-24] MEDS ORDERED: ACETAMINOPHEN 1000 MG/100 ML BAG IVPB ONE (18:39)
[2023-07-24] MEDS: DOCUSATE SODIUM 100 MG CAPSULE (FP) PO SCH (21:01)
[2023-07-24] MEDS: MELATONIN 1 MG TABLET PO SCH (21:02)
[2023-07-25] MEDS: PIPERACILLIN/TAZOB 4.5 GM 4.5 GM in DEXTROSE 5%-WATER 100 ML IVPB SCH ×2 (01:01→10:06)
[2023-07-25] MEDS: ALPRAZolam 0.25 MG TABLET PO SCH ×3 (05:47→21:27)
[2023-07-25] MEDS: INSULIN (LEVEMIR) 100 UNITS/ML UNITS SQ SCH ×2 (06:13→21:28)
[2023-07-25] MEDS: INSULIN ASPART SLIDING SCALE (NOVOLOG) 1 VIAL SQ SCH ×3 (06:13→17:20)
[2023-07-25] MEDS: ALBUTEROL SO4 2.5/IPRATROPIUM 0.5 INH SOL 3 ML VIAL.NEB. NEB SCH ×3 (08:04→20:32)
[2023-07-25 08:43] LABS: HEMATOCRIT 30.2 % (35.4-49); HEMOGLOBIN 8.5 GM/dL (11.7-16.9); MCH 21.3 pg (25.7-33.7); MEAN PLT VOLUME 10.4 fl (7.5-11.1); PLATELET COUNT 102 10^3/uL (134-434); RBC 3.98 M/mm3 (4.00-5.60); RDW 22.9 % (11.9-15.9); WHITE BLOOD COUNT 15.1 K/mm3 (4.0-10.0)
[2023-07-25 08:44] LABS: CHLORIDE 90 mmol/L (98-107); POTASSIUM 3.4 mmol/L (3.5-5.1); SODIUM 141 mmol/L (136-145)
[2023-07-25 08:52] LABS: ALBUMIN 2.8 g/dl (3.4-5.0); BLOOD UREA NITROGEN 26.8 mg/dL (7-18); GLUCOSE,RANDOM 152 mg/dL (74-106)
[2023-07-25 08:53] LABS: MAGNESIUM 2.4 mg/dL (1.8-2.4)
[2023-07-25 08:55] LABS: CREATININE 0.6 mg/dL (0.55-1.3); PHOSPHOROUS 3.2 mg/dL (2.5-4.9); SGOT/AST 8 U/L (15-37); SGPT/ALT 30 U/L (13-61)
[2023-07-25 08:57] LABS: BILIRUBIN,TOTAL 0.3 mg/dL (0.2-1); TOT PROT 5.2 g/dl (6.4-8.2)
[2023-07-25 08:59] LABS: ALK PHOS 57 U/L (45-117)
[2023-07-25 09:05] LABS: ANION GAP 6 mmol/L (4-13); CO2 > 45 mmol/L (21-32)
[2023-07-25] MEDS: methylPREDNISolone NA SUCC 40 MG/1 ML VIAL IVPUSH SCH ×2 (10:05→21:28)
[2023-07-25 10:06] LABS: ANISOCYTOSIS 3+; MACROCYTOSIS 0
[2023-07-25] MEDS: ESCITALOPRAM OXALATE 20 MG TABLET PO SCH (10:06)
[2023-07-25] MEDS: busPIRone HCL 5 MG TABLET PO SCH ×2 (10:06→21:26)
[2023-07-25] MEDS: FUROSEMIDE 20 MG TABLET (FP) PO SCH (10:06)
[2023-07-25] MEDS: PANTOPRAZOLE 40 MG TABLET PO SCH (10:06)
[2023-07-25] MEDS: METOPROLOL TARTRATE 25 MG TABLET (FP) PO SCH ×2 (10:06→21:26)
[2023-07-25] MEDS: FLUTICASONE/UMECLIDIN/VILANTER(200-62.5-25 TRELEGY ELLIPTA) INAHLER IH SCH (10:07)
[2023-07-25] MEDS: POLYETHYLENE GLYCOL (HEALTHYLAX) 3350 17 GM PACKET PO SCH (10:07)
[2023-07-25] MEDS ORDERED: POTASSIUM CHLORIDE TABS 10 MEQ TABLET.ER (FP) PO ONE (15:04)
[2023-07-25] MEDS: RIVAROXABAN 20 MG TABLET PO SCH (17:20)
[2023-07-25] MEDS ORDERED: MAG HYDROX/AL HYDROX/SIMETH 30 ML UNIT-DOSE CUP PO ONE (17:20)
[2023-07-25] MEDS: MELATONIN 1 MG TABLET PO SCH (21:26)
[2023-07-25] MEDS: DOCUSATE SODIUM 100 MG CAPSULE (FP) PO SCH (21:27)
[2023-07-26] MEDS: ALPRAZolam 0.25 MG TABLET PO SCH ×3 (05:48→21:53)
[2023-07-26] MEDS: INSULIN (LEVEMIR) 100 UNITS/ML UNITS SQ SCH ×2 (06:12→22:00)
[2023-07-26] MEDS: INSULIN ASPART SLIDING SCALE (NOVOLOG) 1 VIAL SQ SCH ×3 (06:12→17:06)
[2023-07-26 07:31] LABS: HEMATOCRIT 29.4 % (35.4-49); MCH 20.9 pg (25.7-33.7); MCHC 27.1 g/dl (32.0-35.9); MEAN CELL VOLUME 77.2 fl (80-96); MEAN PLT VOLUME 11.4 fl (7.5-11.1); PLATELET COUNT 104 10^3/uL (134-434); RBC 3.81 M/mm3 (4.00-5.60); WHITE BLOOD COUNT 16.3 K/mm3 (4.0-10.0)
[2023-07-26 07:35] LABS: POTASSIUM 4.4 mmol/L (3.5-5.1)
[2023-07-26 07:42] LABS: BLOOD UREA NITROGEN 32.3 mg/dL (7-18)
[2023-07-26 07:43] LABS: BILIRUBIN,TOTAL 0.3 mg/dL (0.2-1)
[2023-07-26 07:44] LABS: PHOSPHOROUS 3.4 mg/dL (2.5-4.9)
[2023-07-26 07:45] LABS: ALBUMIN 2.6 g/dl (3.4-5.0); CALCIUM 8.6 mg/dL (8.5-10.1); CREATININE 0.6 mg/dL (0.55-1.3); MAGNESIUM 2.6 mg/dL (1.8-2.4)
[2023-07-26] MEDS: ALBUTEROL SO4 2.5/IPRATROPIUM 0.5 INH SOL 3 ML VIAL.NEB. NEB SCH ×3 (08:25→20:17)
[2023-07-26] MEDS: PANTOPRAZOLE 40 MG TABLET PO SCH (10:10)
[2023-07-26] MEDS: busPIRone HCL 5 MG TABLET PO SCH ×2 (10:10→21:54)
[2023-07-26] MEDS: ESCITALOPRAM OXALATE 20 MG TABLET PO SCH (10:10)
[2023-07-26] MEDS: METOPROLOL TARTRATE 25 MG TABLET (FP) PO SCH ×2 (10:10→21:54)
[2023-07-26] MEDS: FUROSEMIDE 20 MG TABLET (FP) PO SCH (10:10)
[2023-07-26] MEDS: methylPREDNISolone NA SUCC 40 MG/1 ML VIAL IVPUSH SCH (10:12)
[2023-07-26] MEDS: FLUTICASONE/UMECLIDIN/VILANTER(200-62.5-25 TRELEGY ELLIPTA) INAHLER IH SCH (10:13)
[2023-07-26 10:20] LABS: ANISOCYTOSIS 2+; MACROCYTOSIS 1+; OVALOCYTE 1+; TEAR DROP CELLS 1+
[2023-07-26] MEDS: POLYETHYLENE GLYCOL (HEALTHYLAX) 3350 17 GM PACKET PO SCH (10:20)
[2023-07-26 10:22] LABS: PLATELET ESTIMATE DECREASED
[2023-07-26] MEDS: RIVAROXABAN 20 MG TABLET PO SCH (17:10)
[2023-07-26] MEDS: DOCUSATE SODIUM 100 MG CAPSULE (FP) PO SCH (21:53)
[2023-07-26] MEDS: MELATONIN 1 MG TABLET PO SCH (21:53)
[2023-07-27] MEDS: ALPRAZolam 0.25 MG TABLET PO SCH ×3 (06:00→21:28)
[2023-07-27] MEDS: INSULIN (LEVEMIR) 100 UNITS/ML UNITS SQ SCH ×2 (06:38→21:34)
[2023-07-27] MEDS: INSULIN ASPART SLIDING SCALE (NOVOLOG) 1 VIAL SQ SCH ×3 (06:38→17:18)
[2023-07-27] MEDS: ALBUTEROL SO4 2.5/IPRATROPIUM 0.5 INH SOL 3 ML VIAL.NEB. NEB SCH (07:10)
[2023-07-27] MEDS: POLYETHYLENE GLYCOL (HEALTHYLAX) 3350 17 GM PACKET PO SCH (09:04)
[2023-07-27] MEDS: busPIRone HCL 5 MG TABLET PO SCH ×2 (09:33→21:28)
[2023-07-27] MEDS: methylPREDNISolone NA SUCC 40 MG/1 ML VIAL IVPUSH SCH (09:34)
[2023-07-27] MEDS: PANTOPRAZOLE 40 MG TABLET PO SCH (09:34)
[2023-07-27] MEDS: ESCITALOPRAM OXALATE 20 MG TABLET PO SCH (09:34)
[2023-07-27] MEDS: FUROSEMIDE 20 MG TABLET (FP) PO SCH (09:34)
[2023-07-27] MEDS: METOPROLOL TARTRATE 25 MG TABLET (FP) PO SCH ×2 (09:34→21:28)
[2023-07-27] MEDS: FLUTICASONE/UMECLIDIN/VILANTER(200-62.5-25 TRELEGY ELLIPTA) INAHLER IH SCH (09:35)
[2023-07-27] MEDS: RIVAROXABAN 20 MG TABLET PO SCH (17:18)
[2023-07-27] MEDS: DOCUSATE SODIUM 100 MG CAPSULE (FP) PO SCH (21:28)
[2023-07-27] MEDS: MELATONIN 1 MG TABLET PO SCH (21:28)
[2023-07-28] MEDS: ALPRAZolam 0.25 MG TABLET PO SCH ×3 (05:54→21:08)
[2023-07-28] MEDS: INSULIN (LEVEMIR) 100 UNITS/ML UNITS SQ SCH ×2 (06:20→21:09)
[2023-07-28] MEDS: INSULIN ASPART SLIDING SCALE (NOVOLOG) 1 VIAL SQ SCH ×3 (06:21→17:39)
[2023-07-28 07:55] LABS: HEMATOCRIT 28.4 % (35.4-49); HEMOGLOBIN 8.3 GM/dL (11.7-16.9); MCH 22.3 pg (25.7-33.7); MCHC 29.3 g/dl (32.0-35.9); MEAN CELL VOLUME 76.4 fl (80-96); MEAN PLT VOLUME 10.5 fl (7.5-11.1); PLATELET COUNT 73 10^3/uL (134-434); RBC 3.72 M/mm3 (4.00-5.60); RDW 24.6 % (11.9-15.9); WHITE BLOOD COUNT 14.1 K/mm3 (4.0-10.0)
[2023-07-28 08:48] LABS: POTASSIUM 4.1 mmol/L (3.5-5.1)
[2023-07-28 08:54] LABS: CALCIUM 9.2 mg/dL (8.5-10.1)
[2023-07-28 08:55] LABS: ALBUMIN 2.7 g/dl (3.4-5.0); BLOOD UREA NITROGEN 29.4 mg/dL (7-18); MAGNESIUM 2.4 mg/dL (1.8-2.4)
[2023-07-28 08:57] LABS: PHOSPHOROUS 3.1 mg/dL (2.5-4.9)
[2023-07-28 08:58] LABS: BILIRUBIN,TOTAL 0.4 mg/dL (0.2-1); CREATININE 0.5 mg/dL (0.55-1.3)
[2023-07-28] MEDS: ESCITALOPRAM OXALATE 20 MG TABLET PO SCH (09:31)
[2023-07-28] MEDS: FLUTICASONE/UMECLIDIN/VILANTER(200-62.5-25 TRELEGY ELLIPTA) INAHLER IH SCH (09:32)
[2023-07-28] MEDS: busPIRone HCL 5 MG TABLET PO SCH ×2 (09:32→21:08)
[2023-07-28] MEDS: methylPREDNISolone NA SUCC 40 MG/1 ML VIAL IVPUSH SCH (09:32)
[2023-07-28] MEDS: PANTOPRAZOLE 40 MG TABLET PO SCH (09:32)
[2023-07-28] MEDS: METOPROLOL TARTRATE 25 MG TABLET (FP) PO SCH ×2 (09:32→21:08)
[2023-07-28] MEDS: FUROSEMIDE 20 MG TABLET (FP) PO SCH (09:32)
[2023-07-28] MEDS: POLYETHYLENE GLYCOL (HEALTHYLAX) 3350 17 GM PACKET PO SCH (09:33)
[2023-07-28 10:49] LABS: ANISOCYTOSIS 1+; MACROCYTOSIS 1+; OVALOCYTE 1+
[2023-07-28] MEDS: RIVAROXABAN 20 MG TABLET PO SCH (17:39)
[2023-07-28] MEDS: DOCUSATE SODIUM 100 MG CAPSULE (FP) PO SCH (21:08)
[2023-07-28] MEDS: MELATONIN 1 MG TABLET PO SCH (21:08)
[2023-07-29] MEDS: ALPRAZolam 0.25 MG TABLET PO SCH ×2 (05:58→13:24)
[2023-07-29] MEDS: INSULIN ASPART SLIDING SCALE (NOVOLOG) 1 VIAL SQ SCH ×2 (05:59→11:57)
[2023-07-29] MEDS: INSULIN (LEVEMIR) 100 UNITS/ML UNITS SQ SCH (06:00)
[2023-07-29 07:50] LABS: MCH 21.9 pg (25.7-33.7); MCHC 28.1 g/dl (32.0-35.9); MEAN PLT VOLUME 11.3 fl (7.5-11.1); RDW 25.2 % (11.9-15.9); WHITE BLOOD COUNT 17.4 K/mm3 (4.0-10.0)
[2023-07-29 08:07] LABS: PLATELET COUNT 92 10^3/uL (134-434)
[2023-07-29 08:10] LABS: POTASSIUM 3.7 mmol/L (3.5-5.1)
[2023-07-29 08:12] LABS: CALCIUM 8.8 mg/dL (8.5-10.1)
[2023-07-29 08:13] LABS: ALBUMIN 2.8 g/dl (3.4-5.0); BLOOD UREA NITROGEN 23.6 mg/dL (7-18)
[2023-07-29 08:16] LABS: CREATININE 0.5 mg/dL (0.55-1.3)
[2023-07-29 08:17] LABS: BILIRUBIN,TOTAL 0.4 mg/dL (0.2-1); TOT PROT 5.4 g/dl (6.4-8.2)
[2023-07-29 08:37] LABS: MAGNESIUM 2.6 mg/dL (1.8-2.4)
[2023-07-29] MEDS ORDERED: ACETAMINOPHEN 325 MG TABLET (FP) PO PRN (09:06)
[2023-07-29] MEDS: METOPROLOL TARTRATE 25 MG TABLET (FP) PO SCH (09:44)
[2023-07-29] MEDS: ESCITALOPRAM OXALATE 20 MG TABLET PO SCH (09:44)
[2023-07-29] MEDS: busPIRone HCL 5 MG TABLET PO SCH (09:45)
[2023-07-29] MEDS: FUROSEMIDE 20 MG TABLET (FP) PO SCH (09:45)
[2023-07-29] MEDS: PANTOPRAZOLE 40 MG TABLET PO SCH (09:45)
[2023-07-29] MEDS: POLYETHYLENE GLYCOL (HEALTHYLAX) 3350 17 GM PACKET PO SCH (09:46)
[2023-07-29] MEDS: methylPREDNISolone NA SUCC 40 MG/1 ML VIAL IVPUSH SCH (09:46)
[2023-07-29] MEDS: FLUTICASONE/UMECLIDIN/VILANTER(200-62.5-25 TRELEGY ELLIPTA) INAHLER IH SCH (09:50)
[2023-07-29] MEDS ORDERED: LIDOCAINE 4% PATCH TP SCH ×2 (10:00→10:15)
[2023-07-29 12:09] LABS: ANISOCYTOSIS 1+; MACROCYTOSIS 0; OVALOCYTE 1+
[2023-07-29 12:33] VITALS: RESP 22
[2023-07-29 13:51] VITALS: BP 120/68; PULSE 100; TEMP 98.4
[2023-07-29] MEDS ORDERED: RIVAROXABAN 15 MG TABLET PO SCH (18:00)
[2023-07-29] MEDS ORDERED: LIDOCAINE PATCH REMOVAL MC SCH ×2 (22:00)
== END 2023-07-29 13:59 | DRG 133 ==
LOC: JER 13:09 → JERBED 15:42 → J4W 07-14 11:34
PROVIDERS: ADMIT Internal Medicine; ATTEND Internal Medicine
PROC: 30233N1 Transfusion of Nonautologous Red Blood Cells into Peripheral Vein, Percutaneous Approach (ICD-10-PCS; principal; 2023-07-12)
DX: J96.21 Acute and chronic respiratory failure with hypoxia (principal); J96.22 Acute and chronic respiratory failure with hypercapnia; J44.0 Chronic obstructive pulmonary disease with (acute) lower respiratory infection; J18.9 Pneumonia, unspecified organism; J44.1 Chronic obstructive pulmonary disease with (acute) exacerbation; E11.9 Type 2 diabetes mellitus without complications; I48.91 Unspecified atrial fibrillation; F41.8 Other specified anxiety disorders; D69.6 Thrombocytopenia, unspecified; Z99.81 Dependence on supplemental oxygen; D50.9 Iron deficiency anemia, unspecified; K59.00 Constipation, unspecified; N39.0 Urinary tract infection, site not specified; B96.5 Pseudomonas (aeruginosa) (mallei) (pseudomallei) as the cause of diseases classified elsewhere; D72.829 Elevated white blood cell count, unspecified
CPT/HCPCS: 0241U-QW; 36415; 36430; 36600; 71045-TC-FY; 80048; 80053; 81003; 82272; 82728; 82803; 82962; 83540; 83550; 83690; 83735; 83880; 84100; 84466; 84484; 85025; 85027; 85610; 85730; 86140; 86850; 86900; 86901; 86922; 87086; 87186; 87635; 93005; 93010; 93306-TC; 94640; 94660; 99285-25; J1644; J1756; P9058